=== PATIENT | female | born 1950 | race Caucasian/White ===

== ENCOUNTER → 2023-10-17 14:00 | Outpatient (REF) | payer OTHER, SELFPAY | LOC: DHCBC MAIN 14:00 | PROVIDERS: ATTENDING PHYSICIAN Internal Medicine Cardiovascular Disease; FAMILY PHYSICIAN Family Medicine | DX: R01.1 Cardiac murmur, unspecified (principal); R06.00 Dyspnea, unspecified | CPT/HCPCS: 93306 ==

== ENCOUNTER → 2024-02-01 06:24 | Day surgery (SDC) | payer OTHER, SELFPAY | LOC: GI 06:24 | PROVIDERS: ATTENDING PHYSICIAN Internal Medicine Gastroenterology | DX: Z12.11 Encounter for screening for malignant neoplasm of colon (principal); K64.4 Residual hemorrhoidal skin tags; K64.8 Other hemorrhoids; K57.30 Diverticulosis of large intestine without perforation or abscess without bleeding; K63.5 Polyp of colon; R12 Heartburn | CPT/HCPCS: 45380; 43235; 88305 ==

== ENCOUNTER → 2024-02-05 11:30 | Outpatient (REF) | payer OTHER, SELFPAY | LOC: RAD 11:30 | PROVIDERS: ATTENDING PHYSICIAN Internal Medicine Gastroenterology; FAMILY PHYSICIAN Family Medicine | DX: R10.13 Epigastric pain (principal) | CPT/HCPCS: 76700 ==

== ENCOUNTER → 2024-07-25 11:02 | Outpatient (REF) | payer OTHER, SELFPAY ==
[2024-07-25 19:30] LABS: Rubella Positive
[2024-07-27 15:50] LABS: Quantiferon Mitogen minus NIL 9.93 IU/mL; Quantiferon NIL 0.07 IU/mL; Quantiferon Plus TB1 minus NIL 0.07 IU/mL (<=0.34); Quantiferon Plus TB2 minus NIL 0.05 IU/mL (<=0.34); Quantiferon TB Gold Plus Negative (Negative)
== END ==
LOC: OHS 11:02
PROVIDERS: ATTENDING PHYSICIAN Nurse Practitioner Family
DX: Z23 Encounter for immunization (principal)
CPT/HCPCS: 36415; 86480; 86735; 86762; 86765; 86787

== ENCOUNTER → 2024-09-24 12:25 | Outpatient (REF) | payer OTHER, SELFPAY | LOC: RAD 12:25 | PROVIDERS: ATTENDING PHYSICIAN Internal Medicine Critical Care Medicine; FAMILY PHYSICIAN Family Medicine | DX: J98.4 Other disorders of lung (principal) | CPT/HCPCS: 71046 ==

== ENCOUNTER → 2024-11-11 13:10 | Outpatient (REF) | payer OTHER, SELFPAY | LOC: DHSLP 13:10 | PROVIDERS: ATTENDING PHYSICIAN Internal Medicine Critical Care Medicine; FAMILY PHYSICIAN Family Medicine | DX: G47.33 Obstructive sleep apnea (adult) (pediatric) (principal) | CPT/HCPCS: 95800 ==

== ENCOUNTER 2025-01-14 13:02 | Inpatient (IN) | payer OTHER, SELFPAY ==
[2025-01-14] VITALS (14 sets, daily range): BP systolic 114–160; BP diastolic 59–92; BMI 24.2
--- NOTE | 2025-01-14 11:32 | ED.GENMED ---
History of Present Illness
General
Chief Complaint: Cardiac Symptoms
Time Seen by Provider: 01/14/25 11:28
History of Present Illness
History of Present Illness:
74-year-old female history of CAD, hyperlipidemia, GERD presenting with worsening shortness of breath with exertion over the past few months. Patient states that it is worsened over the past few weeks. Patient states that she followed up with her
postal sorting officer who performed stress test that was concerning for ischemia, patient directed to the ER for admission. Patient denies chest pain. Patient denies shortness of breath currently.
Past History
Past History
ED Past Medical History: GERD and Other (Diverticulosis, anxiety, depression, reflux)
ED Past Surgical History: Gynecological (Bilateral nephrectomy with benign mass, EGD and colonoscopy, cholecystectomy)
Social History
Tobacco: Former smoker (Quit 20 years ago)
Alcohol: Daily (2 drinks a day)
Drug: None
Personal:
Employment: Retired
Family History
Family History: CAD (mother 70s and father 50s, mother w/ CHF)
Phy Exam
Physical Exam
Physical Exam:
General: Alert, no acute distress
Head: NCAT
Eyes: clear conjunctiva
Neck: supple
Cardiac: regular rate and rhythm, no murmur. 2+ radial pulses bilaterally
Lungs: clear to auscultation bilaterally. No wheezes, rales, or rhonchi. Speaking full unlabored sentences. No respiratory distress.
Abdomen: soft, nondistended nontender. No rebound or guarding.
MSK: no lower extremity edema bilaterally. No deformity
Skin: warm, dry
Neuro: Alert and oriented x3. no focal deficits
Course
Orders/Labs/Results
Orders:
Orders
01/14/25 11:21
Electrocardiogram (*1) Urgent
Reason for Study: Vertigo / Dizzy
EKG- Treatment ONCE
01/14/25 11:28
Complete Blood Count/With Diff Urgent
Comprehensive Metabolic Panel Urgent
01/14/25 11:34
Protime/PTT Urgent
Troponin I Urgent
01/14/25 11:40
Aspirin Chewable [Low Strength Aspirin] 324 mg PO NOW STA
01/14/25 12:37
Admit/Transfer Patient As Directed
Co-Sign Provider:
Level of Care: Inpatient admission
Assign to:: IVU
Physician / Group: CBC
Diagnosis: USA
Reason for Hospitalization: USA
Expected length of stay greater than two midnights?: Yes
ELOS- Estimated Length of Stay in days: 3
I certify the patient meets the requirements for IP care: Yes
01/14/25 12:38
Code Status As Directed
Resuscitation Status: Full Code
PRN Pain Medication Management As Directed
May give lesser potent ordered pain med per pt: Yes
preference::
Protocol:: Medication orders for pain may be administered in a
manner that supports deferring to patient preference
when the pt is:
- Requesting an ordered lesser potent pain medication.
Least to most potent pain medications are defined
as: acetaminophen < NSAID < tramadol < opioids
(morphine, oxycodone, hydromorphone).
- Requesting a lesser dose of the same medication IF
ORDERED.
- Requesting a less intrusive route of administration
if both routes are prescribed by the provider (PO <
IV).
Abnormal Lab Results
01/14/25
11:28
RBC 3.81 L 10^6/uL
(4.20-5.40)
Hct 36.8 L %
(37.0-47.0)
MCH 35.2 H pg
(27.0-31.0)
Glucose 109 H mg/dl
(70-99)
Calcium 10.5 H mg/dl
(8.4-10.2)
01/14/25 11:28
01/14/25 11:28
Vital Signs
Initial and Last Documented VS:
Initial Vital Signs
BP
143/63
01/14/25 11:21
Last Documented Vital Signs
Temp Pulse Resp BP Pulse Ox
98.0 F 64 21 143/63 98
01/14/25 11:22 01/14/25 13:45 01/14/25 13:45 01/14/25 13:00 01/14/25 13:45
MDM/Problems Addressed
Differential Diagnosis Includes:
NSTEMI, unstable angina, anemia
MDM/Problems Addressed:
Labs reviewed, unremarkable. Hemoglobin, troponin wnl. EKG shows sinus rhythm at 61bpm with PA 220 QTc 408 anterolateral t wave abnormality as read by me. Discussed with cardiology who plans for cardiac catheterization today, does not recommend
heparin at this time, accepts for admission
*Critical Care Note
Total Time (30-74mins, 75-104mins- exclusive of procedures): Not Applicable
ED Attending Note
-
Portions of this chart may have been created with voice recognition software.� Occasional wrong word or��sound alike� substitutions may have occurred due to the inherent limitations of voice recognition software.
Discharge Plan
Departure
Patient Disposition: Admit
Date of Disposition: 01/14/25
Time of Disposition: 13:06
Presentation/result/management discussed w/ accepting MD/DO: cardiology
Discharge Problem:
ROSENBAUM (dyspnea on exertion)
Interventions
Interventions:
*Risk Screen - Suicide Last Done: 01/14/25 11:22
*General Assessment Last Done: 01/14/25 11:22
*Neglect/Abuse Screening Last Done: 01/14/25 11:22
*ED- Fall Risk Assessment Last Done: 01/14/25 11:22
*ED COVID-19 Vaccine History Last Done: 01/14/25 11:22
ED- Pulmonary Assessment Last Done: 01/14/25 11:22
ED- Cardiac Assessment Last Done: 01/14/25 11:22
[2025-01-14 11:36] LABS: % Basophils 0.4 % (0-2); % Eosinophils 3.4 % (0-6); % Lymphocytes 44.1 % (20.5-51.1); % Monocytes 8.6 % (1.7-9.3); % Neutrophils 43.5 % (42.2-75.2); Absolute Eosinophils 0.2 10^3/uL (0-0.7); Absolute Lymphocytes 2.2 10^3/uL (1.2-3.4); Absolute Monocytes 0.4 10^3/uL (0.1-0.6); Absolute Neutrophils 2.2 10^3/uL (1.4-6.5); Hematocrit 36.8 % (37.0-47.0); Hemoglobin 13.4 g/dL (12.0-16.0); Mean Corp Hgb Conc. 36.4 g/dL (33.0-37.0); Mean Corpuscular Hgb 35.2 pg (27.0-31.0); Mean Corpuscular Volume 96.6 fL (81.0-99.0); Mean Platelet Volume 10.3 fL (7.4-10.4); Nucleated Red Blood Cells % 0 %; Platelet Count 210 10^3/uL (130-400); Red Blood Cell Count 3.81 10^6/uL (4.20-5.40); Red Cell Dist. Width 11.9 % (11.5-14.5)
[2025-01-14] MEDS: LOW STRENGTH ASPIRIN 324 MG PO (11:51)
[2025-01-14 11:54] LABS: ALT (SGPT) 16 U/L (0-35); AST (SGOT) 19 U/L (14-36); Albumin 4.4 g/dl (3.5-5.0); Alkaline Phosphatase 65 U/L (38-126); Blood Urea Nitrogen 16 mg/dl (7-17); Calcium 10.5 mg/dl (8.4-10.2); Carbon Dioxide 29 mmol/L (22-30); Chloride 107 mmol/L (98-107); Estimated Creatinine Clearance 62 ml/min; Glucose 109 mg/dl (70-99); Sodium 142 mmol/L (135-145); Total Bilirubin 0.6 mg/dl (0.2-1.3); eGFR > 60.00
[2025-01-14 11:55] LABS: INR 0.95
[2025-01-14 11:56] LABS: APTT 25.5 Sec (23.4-35.0)
[2025-01-14 12:12] LABS: Troponin I < 0.012 ng/ml
--- NOTE | 2025-01-14 12:31 | W.PN.CD ---
Addendum entered and electronically signed by Marianne Johansen MD 01/14/25 13:35:
I saw and examined the patient.
The PURCHASER's note was reviewed and I agree with the note.
Comment: She had a scheduled ett today that has a high risk result. Last month she could walk a mile, now cannot walk very far at all without stopping. She is also very fatigued. rrr normal s1/s2, no mrg. Lungs CTA. No le edema. Discussed the
stress results and with progressive ROSENBAUM that seems to be her anginal equivalent, there is c/f UA. Recommend urger cath today. She is agreeable, will plan for cath today.
Original Note:
Today's Communication / Plan
-
This is the H&P summary. Please see scanned H&P.
Cardiac catheterization today.
Impression / Plan
-
I/P: 74F with atherosclerosis of the abdominal aorta, former smoker, GERD, dyslipidemia, anxiety, and mild cLVH who presented for Lexiscan nuclear stress test which was abnormal. This was prompted by exertional shortness of breath and exercise
intolerance.
Outpatient explosive ordnance disposal technician: Dr. Galarza
Unstable angina
-Perfusion imaging reveals a large area of moderately decreased perfusion that is predominantly reversible in the mid to apical anterior, mid anteroseptal, apical septal and apex.
-ASA 324mg x 1 now
-Echocardiogram
-Cardiac catheterization today
-Start atorvastatin, if she has an intolerance to this, she will need PCSK9 inhibitor in the outpatient setting
Abdominal aortic atherosclerosis
Statin intolerance, rosuvastatin caused fatigue and pravastatin caused headaches
Former tobacco abuse, continue cessation recommended
Physical Exam
Vital Signs/Labs
Vital Signs
Temp Pulse Resp BP Pulse Ox
98.0 F 68 20 137/61 94
01/14/25 11:22 01/14/25 12:00 01/14/25 12:00 01/14/25 12:00 01/14/25 12:00
01/13/25 01/14/25 01/15/25
06:59 06:59 06:59
Actual Weight 65.9 kg
01/14/25 11:28
01/14/25 11:28
PT 13.0 Sec (11.4-14.6) 01/14/25 11:34
INR 0.95 01/14/25 11:34
APTT 25.5 Sec (23.4-35.0) 01/14/25 11:34
LAB Results
01/14/25
11:34
Troponin I < 0.012
Physical Exam
Constitutional: No acute distress and Comfortable
EENT: Anicteric and Moist mucous membranes
Cardiovascular: Rhythm & rate is regular, Pedal edema is absent and S1S2 is normal
Respiratory: Respiratory effort normal and Lungs clear to auscul.
GI: Soft, Distention absent, Flat, Non tender and Normal bowel sounds
Neuro/Psych: AO x 3
Other: Skin (warm and dry)
Data Reviewed
-
Date of Service: January 14, 2025
Medical Decision Making: External Notes and Reviewed Test Results
Medical Tests (PFT, Pathology etc): Report Reviewed by me
Labs: Labs Reviewed by me
Old Records: Reviewed
--- NOTE | 2025-01-14 18:00 | PTCARENOTE ---
Pt recieved from laborer carpentry dock, R band on right wrist CDI, no c/o chest pain or SOB, EKG obtained, SR on the monitor. NSS infusing @ 99ml/hr x 5hr via R AC. VSS.
[2025-01-14] MEDS: PROTONIX 40 MG PO (18:30)
[2025-01-14] MEDS: LIPITOR 80 MG PO (18:30)
--- NOTE | 2025-01-14 19:39 | PTCARENOTE ---
Received pt @ change of shift. AAOx3, eating dinner. BP elevated (160/74), other VSS. Rt radial site clean, dry, and intact. Radial band has 19 cc. NSS gtt running @ 99 mL/hr for 5 hrs. Discussed continuing to remove air from band and not pushing on
wrist once band is removed. Pt verbalized understanding. Call gale within reach.
--- NOTE | 2025-01-14 20:47 | ITS.CL.PN ---
Negative Stripper - Procedure Note
Procedure
Procedure Note:
CARDIAC CATHETERIZATION REPORT
Date of Procedure: 01/14/2025
Referring: Dr. Anya Johansen MD
Indication: high risk ETT
PROCEDURE(S)
1. left heart catheterization
2. coronary angiography
3. IVUS LAD
4. PCI with SAEID to LAD
ACCESS: 6F right radial artery (closure: radial band)
CATHETERS
1. 6F JR4
2. 6F JL3.5
3. 6F JL3.5 guide catheter (vessel not able to be successful cannulated with an EBU3.5, EBU4.0, or AL1 guide catheter)
MODERATE SEDATION: 60 minutes of moderate sedation was utilized. An independent medical nurse was present to assist with and help manage the patient's level of consciousness and physiologic status.
HEMODYNAMIC DATA
LV 119/5 (EDP 10) mmHg
AO 119/62 (mean 86) mmHg
CORONARY ANGIOGRAPHY
Dominance: Right
LM: Large, normal
LAD: Large vessel giving rise to 3 small diagonal branches. There is a subtotal occlusion in the mid LAD at the bifurcation of D2. The D2 has severe ostial disease. There is evidence of retrograde left to left collaterals from the proximal LAD
septals supplying the mid-distal LAD
LCx: Large vessel giving rise to a moderate caliber LPL1 and large LPL2. There are trivial luminal irregularities only
RCA: Large vessel giving rise to a moderate caliber RPDA, small RPL 1, moderate caliber RPL 2, and small distal RPL branches. There are trivial luminal irregularities only.
IVUS-guided PCI with SAEID to LAD
Heparin was administered to achieve ACT greater than 300. The LAD was wired with some difficulty as a Runthrough wire would not traverse the lesion and a hydrophilic Whisper wire was required. Initial lesion preparation was performed with a 2.0 mm
semicompliant balloon with full expansion and denominational of normal LIZA-3 distal flow. IC nitro was given and IVUS was performed demonstrating a 3.0 mm reference vessel diameter and noncalcific plaque. A 3.0 x 22 mm Russell frontier drug-eluting stent
was delivered and deployed at nominal pressure. There was noted to no longer be flow in the small jailed D2, which had severe ostial disease. The patient was having no chest pain and there were no ST changes on the monitor. Thus, decision was made
not to rescue the small side branch. Post dilation was performed with a 3.0 NC balloon taken to high-pressure sparing the distal edge. Final IVUS demonstrated excellent stent apposition and expansion, appropriate sizing, and no proximal or distal
edge dissections. Final angiographic result was outstanding. The wire and guide were removed and a TR band placed. The patient was loaded with 180 mg of ticagrelor and admitted for observation.
RADIATION: dose 454 mGy; DAP 21.493 Gy*cm2; fluoroscopy time 30 min
CONCLUSIONS
1. Coronary artery disease as described with subtotal occlusion of the mid LAD
2. Normal LV filling pressure and no aortic stenosis
3. Successful IVUS guided PCI to the mid LAD with SAEID x 1 (3.0 x 22 mm Russell [place] SAEID postdilated to high-pressure with a 3.0 NC balloon)
RECOMMENDATIONS
1. DAPT with aspirin and ticagrelor for 1 year
2. Aggressive secondary prevention of coronary artery disease
3. TTE in AM
4. Cardiac rehab
Copy to: Dr. Jorge L Galarza MD (project management professional); Dr. Diana Sousa DO (PCP)
Signed: Richard Robledo MD, PhD
[2025-01-14] MEDS: XANAX 0.75 MG PO (22:01)
[2025-01-14] MEDS: DESYREL 50 MG PO (23:00)
[2025-01-14] MEDS: CYMBALTA DELAYED RELEASE 60 MG PO (23:00)
--- NOTE | 2025-01-14 23:53 | W.PN.UPDATE ---
Update Note
Progress Note Update
[id number]
Right forearm hematoma post transradial cath, pulse ok, fingers numb per patient.�
Plan�
Reapplied pressure band; inflate to 10cc for 1hour, then slowly release 2cc at time.
Icing area�
Monitor for compartment syndrome�
[2025-01-15] VITALS (15 sets, daily range): BP systolic 87–140; BP diastolic 43–77
[2025-01-15] MEDS: DILAUDID 0.25 MG IV ×2 (00:23→18:19)
--- NOTE | 2025-01-15 00:39 | PTCARENOTE ---
Addendum entered by Cassandra Ford RN 01/15/25 00:45:
About 30 minutes post reapplying band, RN noticed swelling around the band increasing. BRISEIDA French, came to look-- advised to keep a close eye on pulse, fingers, and any indication of compartment syndrome.
Original Note:
RN removed Rband @ 2315. Pt called RN back into room @ 2320-- pt had developed a hematoma. RN notified BRISEIDA French and he came to assess. RN held manual pressure for 30 minutes. Hematoma resolved. RN directed to reapply Rband with 10 cc of
air, let wait an hour, and begin to slowly remove air 2cc Q15min. Pt c/o pain. Dilaudid ordered and given-- see MAR. Pt educated on calling nurse if fingers become numb, swelling gets worse, or pain gets worse. Pt verbalized understanding. Call
gale within reach.
[2025-01-15] MEDS: DILAUDID 0.5 MG IV ×4 (01:34→20:31)
--- NOTE | 2025-01-15 05:15 | PTCARENOTE ---
R band removed @ 0445. Hematoma still present. RN held pressure on area for 10 minutes. Hematoma resolved-- area soft to touch. Very ecchymotic.
[2025-01-15 05:33] LABS: Hemoglobin 12.6 g/dL (12.0-16.0); Mean Corp Hgb Conc. 37.1 g/dL (33.0-37.0); Mean Corpuscular Hgb 35.6 pg (27.0-31.0); Mean Platelet Volume 10.4 fL (7.4-10.4); Platelet Count 196 10^3/uL (130-400); Red Blood Cell Count 3.54 10^6/uL (4.20-5.40); Red Cell Dist. Width 11.6 % (11.5-14.5); White Blood Cell Count 5.1 10^3/uL (4.8-10.8)
[2025-01-15 05:58] LABS: Blood Urea Nitrogen 13 mg/dl (7-17); Carbon Dioxide 25 mmol/L (22-30); Chloride 108 mmol/L (98-107); Estimated Creatinine Clearance 62 ml/min; Glucose 100 mg/dl (70-99); HDL Cholesterol 40 mg/dl; LDL Cholesterol, Calculated 93 mg/dl; Sodium 140 mmol/L (135-145); Total Cholesterol 156 mg/dl (50-199); Triglyceride 119 mg/dl (10-149); Very Low Density Lipoprotein 23 mg/dl (0-30); eGFR > 60.00
--- NOTE | 2025-01-15 08:34 | W.PN.CD ---
Today's Communication / Plan
-
DAPT and statin
No BB due to bradycardia
Echo today
US to rule out pseudoneurysm of R wrist
Impression / Plan
-
I/P: 74F with atherosclerosis of the abdominal aorta, former smoker, GERD, dyslipidemia, anxiety, and mild cLVH with recent exertional shortness of breath and exercise intolerance who presented for Lexiscan nuclear stress test with high risk
findings. Taken for [facility] yesterday with SAEID to LAD. Course complicated by R wrist hematoma.
Outpatient biodiesel plant superintendent: Dr. Galarza
Unstable angina s/p SAEID to LAD
-Perfusion imaging reveals a large area of moderately decreased perfusion that is predominantly reversible in the mid to apical anterior, mid anteroseptal, apical septal and apex.
-[facility] 01/14/25: normal LM, subtotal occlusion mid LAD, LCx with LIs, RCA with LIs; 3.0 x 22 mm Russell frontier drug-eluting stent to mid-LAD; small jailed D2
-Echocardiogram today
-Continue ASA, Ticag and Atorvastatin
-No BB due to bradycardia
R wrist hematoma
-Continue compression and symptomatic care
-US to rule out pseudoaneurysm
Hypertension
-Losartan started
Abdominal aortic atherosclerosis
Statin intolerance, rosuvastatin caused fatigue and pravastatin caused headaches
Former tobacco abuse, continue cessation recommended
Subjective: Wrist pain but otherwise feels ok. Was up and went to bathroom.
Physical Exam
Vital Signs/Labs
Vital Signs
Temp Pulse Resp BP Pulse Ox
98.1 F 59 16 130/66 97
01/15/25 07:32 01/15/25 08:15 01/15/25 07:32 01/15/25 07:31 01/15/25 07:32
01/14/25 01/15/25 01/16/25
06:59 06:59 06:59
Actual Weight 145 lb 4.554 oz
01/15/25 05:05
01/15/25 05:05
PT 13.0 Sec (11.4-14.6) 01/14/25 11:34
INR 0.95 01/14/25 11:34
APTT 25.5 Sec (23.4-35.0) 01/14/25 11:34
Triglycerides 119 mg/dl (10-149) 01/15/25 05:05
LDL Cholesterol, Calc 93 mg/dl 01/15/25 05:05
VLDL Cholesterol, Calc 23 mg/dl (0-30) 01/15/25 05:05
HDL Cholesterol 40 mg/dl 01/15/25 05:05
LAB Results
01/14/25
11:34
Troponin I < 0.012
Physical Exam
Constitutional: No acute distress and Comfortable
Cardiovascular: Rhythm & rate is regular, Pedal edema is absent and Murmur/rub/gallop absent
Respiratory: Respiratory effort normal and Lungs clear to auscul.
Neuro/Psych: AO x 3
Other: Cath Site (R wrist swelling and tenderness, TR band in place)
Data Reviewed
-
Date of Service: January 15, 2025
Medical Decision Making: Reviewed Test Results, Independent Historian Assessment, Test Interpretation and Review of Case with other Provider
EKG: Tracing Personally Visualized and interpreted
Echo: Tracing Personally Visualized and interpreted
Labs: Labs Reviewed by me
--- NOTE | 2025-01-15 08:38 | CARDSERVDEF ---
Echocardiogram with Definity completed after protocol screening completed. Allergies verified.
Patent IV site: _Right arm median basillic antecubital site clear____
IV site flushed with 0.9% NaCl pre and post administration.
Diluted bolus method utilized to enhance visualization of ventricular pineda.
Total volume given: __3__ mL
Patient tolerated all procedures well without complications.
[2025-01-15] MEDS: COZAAR 25 MG PO (09:03)
[2025-01-15] MEDS: BRILINTA 90 MG PO ×2 (09:03→19:24)
[2025-01-15] MEDS: LOW STRENGTH ASPIRIN 81 MG PO (09:04)
[2025-01-15] MEDS: FLUSH (NSS) 1 FLUSH IV (09:05)
[2025-01-15 09:19] LABS: Glycohemoglobin (HgbA1c) 5.2 % (4.0-5.6)
--- NOTE | 2025-01-15 09:51 | PTCARENOTE ---
During rounds at change of shift with outgoing nurse, right wrist dressing was dry and intact, strong radial pulse and area soft but ecchymotic. Patient notified nurse at 0740 that she felt her wrist area was getting firm again. Manual pressure held
for 10mins and then Dr. Dale in to see the patient. She placed radial band back on the patient's right wrist, to leave on for one hour and then begin removing air q 30'. Patient having 8/10 pain right wrist, given dilaudid 0.5mg IV for pain,
reports pain is now 2/10. Will send for u/s when band removed.
--- NOTE | 2025-01-15 10:39 | CM ---
Patient is independent of ADLS, lives with her in a 2 STH, 2STE, 0 DME. Plan is for the patient to return home. CM to follow
--- NOTE | 2025-01-15 10:41 | CM ---
Pricing on Brilinta 90mg BID is $111 through the patient's [facility], [place] [id number]. Brilinta is not available at the patient's [facility]. Prescription will need to be placed at a different [facility] if patient goes home before Monday. Patient
prefers [facility] and it is available.
--- NOTE | 2025-01-15 10:53 | PTCARENOTE ---
Air removed from right radial band q30', band now off. Right wrist is ecchymotic with some edema and slight firmness. Patient send for ultrasound.
--- NOTE | 2025-01-15 12:35 | CON.VAS ---
Addendum entered and electronically signed by FOREIGN Lynch 01/15/25 13:52:
Consultation Date/Time: 01/15/25 1235
Addendum entered and electronically signed by FOREIGN Lynch 01/15/25 13:26:
CORRECTION: Past Surgical History: Other (Bilateral oophorectomy with benign mass, EGD and colonoscopy, cholecystectomy)
Original Note:
Consultation
Consultation Request
Performing Provider: Lemuel
Reason for Consultation: Radial pseudoanuerysm
Medical History
-
Chief Complaint: Right radial swellinh/ecchymosis
History of Present Illness:
74 yo female with PMH CAD, former smoker, GERD, dyslipidemia, anxiety admitted through the ER yesterday from her cardiologists office for high risk findings on nuc stress test. Pt was taken for [facility] yesterday with SAEID to LAD. This was complicated by
a right radial hematoma.
RUE US: IMPRESSION: Small right radial artery pseudoaneurysm status post percutaneous access for coronary catheterization. Pseudoaneurysm measures 0.9 x 0.6 x 0.8 cm.
Vascular consult for PSA. Pt seen at bedside with Dr Hdez. She does indeed have a palpable small pulsatile mass. Some surrounding ecchymosis and hematoma but soft and not tense or significant. Hand is pink and warm. Neurologically intact
motor/sensory function in the hand. Duplex reviewed with patient.
Past Medical History
Past Medical History: GERD, HTN and Other (Diverticulosis, anxiety, depression, reflux)
Past Surgical History: Other (Bilateral nephrectomy with benign mass, EGD and colonoscopy, cholecystectomy)
Social History
Tobacco: Former Smoker
Drug: None
Personal:
Living: With Family
Family History
Family History: Reviewed & Not Pertinent
Allergies / Home Medications
Allergy/AdvReac Type Severity Reaction Status Date / Time
No Known Allergies Allergy Verified 01/14/25 11:26
�Medication �Instructions �Recorded �Confirmed �Type
alprazolam 0.25 mg tablet 0.75 mg PO HS 05/12/14 04/08/25 History
duloxetine 60 mg capsule,delayed 60 mg PO HS 02/17/14 01/14/25 History
release
ibuprofen 200 mg tablet (Advil) 400 mg PO Q8HPRN PRN headache 01/14/25 01/14/25 History
pantoprazole 40 mg tablet,delayed 40 mg PO QPM 01/14/25 01/14/25 History
release (Protonix)
trazodone 50 mg tablet 50 mg PO HS 01/14/25 01/14/25 History
atorvastatin 80 mg tablet 80 mg PO QPM #90 tabs 01/15/25 Rx
losartan 25 mg tablet 25 mg PO DAILY #90 tabs 01/15/25 Rx
ticagrelor 90 mg tablet (Brilinta) 90 mg PO BID #180 tabs 01/15/25 Rx
Review of Systems
-
History Source: Patient
All other systems: Negative unless noted
Constitutional: Reports No Symptoms
EENT: Reports No Symptoms
Respiratory: Reports No Symptoms
Cardiac: Reports No Symptoms
: Reports No Symptoms
Musculoskeletal: Reports Edema
Skin: Reports Other (ecchymotic right wrist and forearm )
Neurological: Reports No Symptoms
Endocrine: Reports No Symptoms
Physical Exam
Vital Signs
Temp Pulse Resp BP Pulse Ox
98.5 F 60 16 122/50 94
01/15/25 12:16 01/15/25 12:15 01/15/25 12:16 01/15/25 12:12 01/15/25 12:16
Lab Results
01/15/25 05:05
01/15/25 05:05
Troponin I < 0.012 ng/ml 01/14/25 11:34
Physical Exam
General: No Apparent Distress
HEENT: Normocephalic and Atraumatic
Respiratory: Non Labored Respirations
Cardiac: Negative JVD
GI: Soft and Non Tender
Musculoskeletal: No Clubbing and Edema
Skin: Warm and Other (+2 radial pulse, swelling/ecchymosis to radial site, hand warm and pink)
Neuro: Awake, Alert and Oriented
Psych: Calm
Assessment / Plan
-
Plan/recommend at this point given continued pain repair of pseudoaneurysm. On ultrasound there is full flow into the aneurysm (no partial thrombus or thrombosis). It is small less than 1 cm, and therefore could consider continued observation, but
given that she is uncomfortable and tender would favor repair. I discussed this all with her. I cristiana diagrams to facilitate her understanding. Discussed the possibility of primary repair, need for more extensive repair with end-to-end
anastomosis, or possibility of ligation of the radial artery. (Less likely though). She understands all wishes to proceed with primary repair of the right radial artery pseudoaneurysm. We will add onto the OR for repair today.
Data Reviewed
-
Ultrasound: Discussed with Patient
Labs: Labs Reviewed by me
--- NOTE | 2025-01-15 12:57 | W.PN.UPDATE ---
Update Note
Progress Note Update
Seen and evaluated with SARIAH Varela. Full consultation to follow. 74-year-old female with right radial artery pseudoaneurysm status post coronary catheterization. She has pain at the site. Uncomfortable. No symptoms of pain or numbness in the
hand itself. Radial band applied without improvement. I examined her now. She does indeed have a palpable small pulsatile mass. Some surrounding ecchymosis and hematoma but soft and not tense or significant. Hand is pink and warm.
Neurologically intact motor/sensory function in the hand. Duplex reviewed. Plan/recommend at this point given continued pain repair of pseudoaneurysm. On ultrasound there is full flow into the aneurysm (no partial thrombus or thrombosis). It is
small less than 1 cm, and therefore could consider continued observation, but given that she is uncomfortable and tender would favor repair. I discussed this all with her. I cristiana diagrams to facilitate her understanding. Discussed the possibility
of primary repair, need for more extensive repair with end-to-end anastomosis, or possibility of ligation of the radial artery. (Less likely though). She understands all wishes to proceed with primary repair of the right radial artery
pseudoaneurysm. We will add onto the OR for repair today.
--- NOTE | 2025-01-15 13:33 | PTCARENOTE ---
After ultrasound, patient seen by Dr. Dale who re-applied the radial band to the right wrist with 12ml of air. Patient is aware to remain NPO for possible procedure for pseudoaneurysm. Vascular team in to see the patient and explained plan of care.
Radial band removed by Dr. Hdez. Right wrist area remains ecchymotic with edema and is tender, strong radial pulse is present. Patient requesting pain medication, tt to Faviola Soto SOFTWARE DEVELOPMENT INTERN.
[2025-01-15] MEDS: PERIDEX 0.12% ORAL RINSE 15 ML PO (15:24)
[2025-01-15] MEDS: BACTROBAN NASAL 1 GRAM NASAL (15:33)
--- NOTE | 2025-01-15 15:37 | PTCARENOTE ---
Pt received from IVU, transported via bed to clam bed laborer recovery area, AAO x3, c/o right wrist discomfort- rates /, site has a dressing dry and intact, swelling and eccymosis noted, monitor showing NSR, vss as documented, denies SOB, lung sounds
clear, O2 sat 95% on room air, last ate at 1000 today, abd soft with +BS, voided in room before leaving, #20G IV in RAC WNL and flushes easily, new #20G inserted in left wrist and NSS @ KVO started, Dr Miguel trinidad texted to inform of pt's arrival,
CHG wipes done
--- NOTE | 2025-01-15 16:01 | W.SUR.PREOP ---
Pre-Operative Surgical Note
-
I have examined this patient prior to the performance of the scheduled procedure.
The patient's condition is unchanged from the time of the current History and
Physical and the patient is able to undergo the scheduled procedure.
--- NOTE | 2025-01-15 17:50 | OR.RPT ---
Operative Report
Operative Report
PROCEDURE DATE: 01/15/2025
Preoperative diagnosis: Right radial artery pseudoaneurysm status post right radial access for coronary catheterization.
Postoperative diagnosis: Same
Procedure: Urgent repair of right radial artery pseudoaneurysm.
Surgeon: Lemuel
Utility Systems Repairer Operator: SARIAH Cooney, required for aspects of procedure including assistance with traction/countertraction, following of suture line, assistance with closure.
Complications: None
Anesthesia: General
Indications for procedure:
Right radial artery pseudoaneurysm status post coronary catheterization (radial Access). Continued pain discomfort in the wrist. Risk/benefit/alternatives of repair were discussed. She understood all wished to proceed.
Description of procedure:
Patient was identified brought to the operating room placed on the table in supine position. After the adequate administration of anesthesia she was prepped and draped in the standard surgical fashion. A standard preoperative timeout was
undertaken and everybody was in agreement the plan. A longitudinal incision was made in the distal radial aspect of the wrist, the center of which encompassed the puncture site. This was carried through skin subcutaneous tissue. There was blood
staining in the subcutaneous tissues. Proximally I tried to dissect the proximal radial artery once through the fascial sheath. Again this was slightly challenging secondary to the blood stained tissues. However I was able to dissect down to the
artery. I did note some bleeding from a pseudoaneurysm at this point. Manual pressure was applied and then circumferential dissection of the radial artery was undertaken proximally with a vascular passed around it. However, I did not pull up the
double looped vessel loop yet. I maintained finger pressure on the bleeding pseudoaneurysmal site. I continued to dissect on the anterior surface of the radial artery now going distally. The actual pseudoaneurysm itself was dissected off and I
now dissected distal to the pseudoaneurysmal hole. Again maintaining finger pressure. I circumferentially dissected the radial artery distally here and passed a vessel loop around it. I now gave 4008 of intravenous heparin. I placed Yasargil
clips on the radial artery proximally distally. I now skeletonized the radial artery such that any residual pseudoaneurysmal tissue or other tissue overlying was completely dissected off. The pseudoaneurysm capsule itself was resected and sent for
specimen. The small puncture site hole was now carefully identified and two 7-0 Prolene sutures were carefully placed in order to close the rent transversely. These were then tied down and as such the pseudoaneurysmal hole was closed transversely.
I then released the Yasargil clips (had temporarily released them to backbleed prior to tying down my sutures). Excellent pulsatile flow was now noted in the radial artery proximal and distal to the repair. Even with compression of the distal
radial artery and ulnar artery, there was good flow suggesting that flow was going through the repaired segment and not retrograde from the ulnar artery. At this point I was very satisfied. Doppler confirmed excellent signal as well. At this
point we irrigated. Achieved and confirmed full hemostasis (protamine was given to reverse the heparin). We then closed in layers using 3-0 Vicryl running deep dermal layer followed by 4-0 Monocryl subcuticular stitch. Dermabond was applied. The
patient tolerated the procedure well. All sponge, needle, instrument counts were correct at the end of the case. The patient was transported to the recovery room in stable condition.
--- NOTE | 2025-01-15 17:55 | W.PN.UPDATE ---
Update Note
Progress Note Update
Interventional cardiology update
Overnight nursing and CT [employer]GETABLE PARER reached out to me around 9:30 PM while on-call that after patient's radial band came off she had evidence of a small hematoma around the site and swelling with some numbness in her fingertips. She underwent PCI earlier
that day. Manual pressure was held for about 20 minutes and we discussed placing the radial band back on for a prolonged wean after leaving it on for 1 to 2 hours. No evidence for compartment syndrome was noted. Hemodynamics were stable with no
other cardiac complaints. We discussed elevating the arm and having a low threshold to be discussed with me if there were any worsening symptoms overnight in which case we would consider a stat ultrasound and vascular surgery input if need be.
I evaluated the patient at bedside for Menjivar this morning around 7:30 AM. Nursing was at bedside along with patient who told me that overnight she had done well and this morning she had recurrent swelling and tenderness at the site. 2+ bounding
radial pulse was noted without audible bruit however there was evidence of subcutaneous hematoma around the access site. We discussed checking a stat vascular ultrasound which was ordered by myself and I placed the radial band back on to apply
pressure at the site and discussed with nursing at bedside to leave it on for another hour and performing a slow wean. Hemodynamics otherwise remained stable with no other cardiac complaints. I discussed with [facility] rounding physician, Dr. Galarza
to make her aware of the plan as well as discussed all of the above with Dr. Silver Robledo (IC who performed PCI yesterday), who agreed with the plan discussed.
Once the ultrasound was performed formed and completed, I reviewed the images and findings vascular surgeon, Dr. Paul Hdez. There was evidence of a small pseudoaneurysm. I stop by the room again and evaluated patient at bedside and given persistent
tenderness, we proceeded to get a formal vascular consult in case intervention was needed. I placed the radial band back on for additional manual pressure at the site until further assessment was completed with the set plan. All of this was
discussed with patient at bedside as well as nursing.
UE US: Small right radial artery pseudoaneurysm status post percutaneous access for coronary catheterization. Pseudoaneurysm measures 0.9 x 0.6 x 0.8 cm. Urgent study findings communicated to ordering provider Dr. Cristela Dale now directly.
Dr. Hdez informed me after evaluated the patient that they would move forward with surgical intervention and take care of the pseudoaneurysm in the setting of persistent tenderness. I again updated both Dr. Galarza and Meena.
Patient underwent successful right radial pseudoaneurysm repair by Dr. Hdez with no acute complications around 5 PM.
Cristela Dale MD, [facility], [facility]
Total time spent throughout the day: 51 minutes
--- NOTE | 2025-01-15 18:48 | PTCARENOTE ---
Received patient from PACU, drowsy but oriented and resting comfortably. SR on telemetry, monitoring VS. Right wrist area is ecchymotic, incision is open to air with surgical glue in place, scant amount of bloody drainage noted. Fingers cool but
rapid capillary refill and positive sensation and movement, pulse ox 95%. Call gale in reach.
[2025-01-15] MEDS: LIPITOR 80 MG PO (19:24)
[2025-01-15] MEDS: PROTONIX 40 MG PO (19:24)
--- NOTE | 2025-01-15 19:31 | PTCARENOTE ---
Received pt @ change of shift. Pt resting, but arouses to sound. Ox3. VSS. BPs on sequence, pulse ox on right hand. Right forearm ecchymotic, YAO. Fingers cool, palpable radial pulse. Pain 11/18. Discussed plan of care for evening. Pt verbalized
understanding.
[2025-01-15] MEDS: XANAX 0.75 MG PO (21:38)
[2025-01-15] MEDS: DESYREL 50 MG PO (21:38)
[2025-01-15] MEDS: CYMBALTA DELAYED RELEASE 60 MG PO (21:38)
[2025-01-16] VITALS (10 sets, daily range): BP systolic 91–139; BP diastolic 48–84; PULSE 71–78; O2SAT 93–94
[2025-01-16] MEDS: DILAUDID 0.5 MG IV ×4 (03:07→17:27)
[2025-01-16 03:56] LABS: Hematocrit 32.9 % (37.0-47.0); Mean Corp Hgb Conc. 36.5 g/dL (33.0-37.0); Mean Corpuscular Hgb 35.4 pg (27.0-31.0); Mean Corpuscular Volume 97.1 fL (81.0-99.0); Mean Platelet Volume 10.4 fL (7.4-10.4); Platelet Count 177 10^3/uL (130-400); Red Blood Cell Count 3.39 10^6/uL (4.20-5.40); Red Cell Dist. Width 12.1 % (11.5-14.5); White Blood Cell Count 4.4 10^3/uL (4.8-10.8)
[2025-01-16 04:07] LABS: Blood Urea Nitrogen 13 mg/dl (7-17); Calcium 9.7 mg/dl (8.4-10.2); Carbon Dioxide 26 mmol/L (22-30); Chloride 110 mmol/L (98-107); Estimated Creatinine Clearance 62 ml/min; Glucose 109 mg/dl (70-99); Potassium 3.9 mmol/L (3.5-5.1); Sodium 142 mmol/L (135-145); eGFR > 60.00
--- NOTE | 2025-01-16 07:27 | W.PN.VS ---
Today's Communication / Plan
-
Seen and assessed with Dr Hdez
Assessment/Plan
-
POD 1 Urgent repair of right radial artery pseudoaneurysm.
Plan:
-PT/OT
-OK from vascular standpoint for DC today
-F/u added to chart
Subjective Data
-
Date of Service: January 16, 2025
Pt seen at bedside this am with Dr Hdez. Pt complains of shoulder stiffness this morning. No events overnight.
Objective Data
-
Vital Signs
Temp Pulse Resp BP Pulse Ox
98.5 F 63 14 120/50 94
01/15/25 22:00 01/16/25 02:15 01/15/25 22:00 01/15/25 22:00 01/16/25 02:15
Intake and Output
01/15/25 01/16/25 01/17/25
06:59 06:59 06:59
Other:
Number of approximated MODERATE 2
amounts of urine
Lab Results
01/16/25 03:22
01/16/25 03:22
Calcium 9.7 mg/dl (8.4-10.2) 01/16/25 03:22
Total Bilirubin 0.6 mg/dl (0.2-1.3) 01/14/25 11:28
AST 19 U/L (14-36) 01/14/25 11:28
ALT 16 U/L (0-35) 01/14/25 11:28
Alkaline Phosphatase 65 U/L (38-126) 01/14/25 11:28
Total Protein 7.0 g/dl (6.3-8.2) 01/14/25 11:28
Albumin 4.4 g/dl (3.5-5.0) 01/14/25 11:28
Physical Exam
-
AAOx3
No tachypnea on RA
No tachycardia
Abd soft
Wrist site c/d/i, moderate ecchymosis, hand warm/pink
Palpable pulse
[2025-01-16] MEDS: COZAAR 25 MG PO (07:36)
[2025-01-16] MEDS: LOW STRENGTH ASPIRIN 81 MG PO (07:36)
[2025-01-16] MEDS: BRILINTA 90 MG PO ×2 (07:36→20:44)
--- NOTE | 2025-01-16 08:28 | W.PN.CD ---
Today's Communication / Plan
-
cont ASA/Brilinta
tele
PT/OT eval
Impression / Plan
-
I/P: 74F with atherosclerosis of the abdominal aorta, former smoker, GERD, dyslipidemia, anxiety, and mild cLVH with recent exertional shortness of breath and exercise intolerance who presented for Lexiscan nuclear stress test with high risk
findings. Taken for [facility] yesterday with SAEID to LAD. Course complicated by R wrist hematoma.
Outpatient photographer still: Dr. Galarza
ACS/Unstable angina: s/p SAEID to LAD 01/14
-C 01/14/25: normal LM, subtotal occlusion mid LAD, LCx with LIs, RCA with LIs; 3.0 x 22 mm [place] frontier drug-eluting stent to mid-LAD; small jailed D2
-Echocardiogram: EF 55-60%, apical septal HK
-Continue ASA, Brilinta, and Atorvastatin
-No BB due to bradycardia
R radial pseudoaneurysm s/p repair 01/15 evening
-per vascular surgery
-PT/OT
Hypertension
-Losartan started this admission
Abdominal aortic atherosclerosis
Statin intolerance, rosuvastatin caused fatigue and pravastatin caused headaches: now on atorvastatin
Former tobacco abuse, continue cessation recommended
Physical Exam
Vital Signs/Labs
Vital Signs
Temp Pulse Resp BP Pulse Ox
99.8 F 63 20 120/50 95
01/16/25 07:34 01/16/25 02:15 01/16/25 07:34 01/15/25 22:00 01/16/25 07:34
01/15/25 01/16/25 01/17/25
06:59 06:59 06:59
Actual Weight 65.9 kg
01/16/25 03:22
01/16/25 03:22
PT 13.0 Sec (11.4-14.6) 01/14/25 11:34
INR 0.95 01/14/25 11:34
APTT 25.5 Sec (23.4-35.0) 01/14/25 11:34
Triglycerides 119 mg/dl (10-149) 01/15/25 05:05
LDL Cholesterol, Calc 93 mg/dl 01/15/25 05:05
VLDL Cholesterol, Calc 23 mg/dl (0-30) 01/15/25 05:05
HDL Cholesterol 40 mg/dl 01/15/25 05:05
LAB Results
01/14/25
11:34
Troponin I < 0.012
Physical Exam
Constitutional: No acute distress and Comfortable
EENT: Moist mucous membranes
Cardiovascular: Rhythm & rate is regular, Pedal edema is absent, JVD pressure is normal and Systolic murmur absent
Respiratory: Respiratory effort normal
Neuro/Psych: AO x 3
Data Reviewed
-
Date of Service: January 16, 2025
EKG: Other (Tele: SR 60s)
Echo: Report Reviewed by me
Labs: Labs Reviewed by me
--- NOTE | 2025-01-16 09:29 | PTCARENOTE ---
Rec'd pt at handoff. R wrist surgical site is YAO and ecchymotic. Pt reports 8/10 pain at surgical site and PRN IV Dilaudid administered as ordered. Pt reports some relief. R wrist elevated and ice applied. Plan of care verbalized w/ pt and
verbalizes understanding. Currently in bed; call gale is w/in reach.
--- NOTE | 2025-01-16 11:49 | CM ---
Chart reviewed. Patient is independent of ADLS, lives with her in a 2 STH, 2 DIPAK, 0 DME. Plan is for the patient to return home. CM to follow
[2025-01-16] MEDS: LIPITOR 80 MG PO (17:22)
[2025-01-16] MEDS: PROTONIX 40 MG PO (17:22)
[2025-01-16] MEDS: ROXICODONE 5 MG PO (22:26)
[2025-01-16] MEDS: DESYREL 50 MG PO (22:26)
[2025-01-16] MEDS: CYMBALTA DELAYED RELEASE 60 MG PO (22:26)
[2025-01-16] MEDS: XANAX 0.75 MG PO (22:26)
--- NOTE | 2025-01-16 23:56 | PTCARENOTE ---
assumed care of patient at the change of shift. AAOx3. patient states continued pain at her Right wrist site. at that time patient requested an ice pack; refused medication. pain continued- PRN oxycodone given, see dec. R wrist site YAO; surgical
glue. ecchymotic, soft. tender to touch per patient. + pulses. SR on tele 70s. bp stable. ambulating without issues. denies cp/sob. educated patient to inform RN with any changes. ACS medication list provided- reviewed with patient. call gale within
reach.
temperature 99.9. patient called RN into the bathroom. patient states having a rash. generalized rash/red noted on abdomen and b/l flanks. patient states rash is new and is 'normal' for her when she starts to become sick. repeat temperature- 99.3.
mild chills per patient. refusing tylenol. denies itching. educated patient to inform RN with any worsening symptoms. patient verbalized understanding.
[2025-01-17] VITALS (7 sets, daily range): BP systolic 109–162; BP diastolic 48–116; PULSE 91
--- NOTE | 2025-01-17 08:37 | W.PN.CD ---
Today's Communication / Plan
-
discharge planning on ASA 81mg daily, brilinta 90mg bid, losartan 25mg daily, atorvastatin 80mg daily
Impression / Plan
-
I/P: 74F with atherosclerosis of the abdominal aorta, former smoker, GERD, dyslipidemia, anxiety, and mild cLVH with recent exertional shortness of breath and exercise intolerance who presented for Lexiscan nuclear stress test with high risk
findings. Taken for [facility] yesterday with SAEID to LAD. Course complicated by R wrist hematoma.
Outpatient mail censor: Dr. Galarza
ACS/Unstable angina: s/p SAEID to LAD 01/14
-C 01/14/25: normal LM, subtotal occlusion mid LAD, LCx with LIs, RCA with LIs; 3.0 x 22 mm [place] frontier drug-eluting stent to mid-LAD; small jailed D2
-Echocardiogram: EF 55-60%, apical septal HK
-Continue ASA, Brilinta, and Atorvastatin
-No BB due to bradycardia
-stable, no angina
R radial pseudoaneurysm s/p repair 01/15 evening
-per vascular surgery
Hypertension
-Losartan started this admission
Abdominal aortic atherosclerosis
Statin intolerance, rosuvastatin caused fatigue and pravastatin caused headaches: now on atorvastatin
Former tobacco abuse, continue cessation recommended
Physical Exam
Vital Signs/Labs
Vital Signs
Temp Pulse Resp BP Pulse Ox
99 F 67 20 109/48 93
01/17/25 08:07 01/17/25 04:38 01/17/25 08:07 01/17/25 04:38 01/17/25 08:07
01/16/25 03:22
01/16/25 03:22
PT 13.0 Sec (11.4-14.6) 01/14/25 11:34
INR 0.95 01/14/25 11:34
APTT 25.5 Sec (23.4-35.0) 01/14/25 11:34
Triglycerides 119 mg/dl (10-149) 01/15/25 05:05
LDL Cholesterol, Calc 93 mg/dl 01/15/25 05:05
VLDL Cholesterol, Calc 23 mg/dl (0-30) 01/15/25 05:05
HDL Cholesterol 40 mg/dl 01/15/25 05:05
LAB Results
01/14/25
11:34
Troponin I < 0.012
Physical Exam
Constitutional: No acute distress and Comfortable
EENT: Moist mucous membranes
Cardiovascular: Rhythm & rate is regular, Pedal edema is absent, JVD pressure is normal and Systolic murmur absent
Respiratory: Respiratory effort normal and Lungs clear to auscul.
Neuro/Psych: AO x 3
Data Reviewed
-
Date of Service: January 17, 2025
EKG: Other (Tele: SR 60s, no arrhythmia)
[2025-01-17] MEDS: COZAAR 25 MG PO (09:19)
[2025-01-17] MEDS: LOW STRENGTH ASPIRIN 81 MG PO (09:19)
[2025-01-17] MEDS: BRILINTA 90 MG PO (09:19)
--- NOTE | 2025-01-17 10:03 | CM ---
Pharmacy called and confirmed, patients Brilinta is in stock and waiting for picking supervisor. PT evaluation recommending VN. Referral sent to [facility]. Plan is for the patient to return [facility] with [facility].
[2025-01-17] MEDS: ULTRAM 50 MG PO (10:19)
[2025-01-17] MEDS: BENADRYL 25 MG PO (10:54)
--- NOTE | 2025-01-17 11:34 | PTCARENOTE ---
pts right radial is cdi and ecchymotic. pt c/o of pain tramadol given as ordered. pt also c/o rash throughout the body, Benadryl given as ordered.
d/c instructions read to pt and pt verbalized understanding. iv and tele removed. pt left w/ belongings from room, educational material, and scripts. pt left via wheelchair w/ staff member.
--- NOTE | 2025-01-17 11:45 | W.DS.TRANS ---
DC Summary - Director Of Development
-
Discharge Instructions:
Discharge Diagnosis/Procedures Angioplasty and stent to Left Anterior
Descending artery
Right wrist pseudoaneurysm, s/p surgical repair
Diet Low Cholesterol
Driving Restrictions No driving for 24 hours
Other Services Cardiac Rehab
Instructions:
Stand-Alone Forms: DC Instructions- Cath/EP Lab
Changes to Home Medications: Yes
Discharge Medications:
DC Medications w/original date entered in Hang[employer]
alprazolam 0.25 mg tablet 0.75 mg PO HS 02/17/14
duloxetine 60 mg capsule,delayed release 60 mg PO HS 02/17/14
ibuprofen 200 mg tablet (Advil) 400 mg PO Q8HPRN PRN headache 01/14/25
pantoprazole 40 mg tablet,delayed release (Protonix) 40 mg PO QPM 01/14/25
trazodone 50 mg tablet 50 mg PO HS 01/14/25
aspirin 81 mg chewable tablet 81 mg PO DAILY #0 tabs 01/15/25
atorvastatin 80 mg tablet 80 mg PO QPM #90 tabs 01/15/25
losartan 25 mg tablet 25 mg PO DAILY #90 tabs 01/15/25
ticagrelor 90 mg tablet (Brilinta) 90 mg PO BID #180 tabs 01/15/25
tramadol 50 mg tablet 50 mg PO BID PRN moderate pain #10 tabs 01/17/25
Home Medication Changes
NEW: aspirin, atorvastatin, losartan, ticagrelor, tramadol
Pending Results: No
== END 2025-01-17 12:05 | disposition home health service (06) | DRG 322 ==
LOC: IVU 13:02
PROVIDERS: Nurse Practitioner; Nurse Practitioner Acute Care; Nurse Practitioner Gerontology; Student in an Organized Health Care Education/Training Program; ADMITTING PHYSICIAN Internal Medicine Cardiovascular Disease; CONSULT PHYSICIAN Surgery Vascular Surgery; EMERGENCY PHYSICIAN Emergency Medicine; FAMILY PHYSICIAN Family Medicine
PROC: B240ZZ3 Ultrasonography of Single Coronary Artery, Intravascular (ICD-10-PCS; 2025-01-14)
PROC: 4A023N7 Measurement of Cardiac Sampling and Pressure, Left Heart, Percutaneous Approach (ICD-10-PCS; 2025-01-14)
PROC: B2111ZZ Fluoroscopy of Multiple Coronary Arteries using Low Osmolar Contrast (ICD-10-PCS; 2025-01-14)
PROC: 027034Z Dilation of Coronary Artery, One Artery with Drug-eluting Intraluminal Device, Percutaneous Approach (ICD-10-PCS; 2025-01-14)
PROC: 03BB0ZZ Excision of Right Radial Artery, Open Approach (ICD-10-PCS; 2025-01-15)
DX: I25.110 Atherosclerotic heart disease of native coronary artery with unstable angina pectoris (principal); I97.630 Postprocedural hematoma of a circulatory system organ or structure following a cardiac catheterization; E78.5 Hyperlipidemia, unspecified; K21.9 Gastro-esophageal reflux disease without esophagitis; F32.A Depression, unspecified; F41.9 Anxiety disorder, unspecified; I11.9 Hypertensive heart disease without heart failure; I70.0 Atherosclerosis of aorta; I72.1 Aneurysm of artery of upper extremity; Y84.0 Cardiac catheterization as the cause of abnormal reaction of the patient, or of later complication, without mention of misadventure at the time of the procedure; Y71.0 Diagnostic and monitoring cardiovascular devices associated with adverse incidents; Y92.239 Unspecified place in hospital as the place of occurrence of the external cause; Z87.891 Personal history of nicotine dependence; Z82.49 Family history of ischemic heart disease and other diseases of the circulatory system; Z90.5 Acquired absence of kidney; Z90.49 Acquired absence of other specified parts of digestive tract
CPT/HCPCS: 88304; 37799; 78452; 80048; 80053; 80061; 83036; 84484; 85025; 85027; 85347; 85610; 85730; 92978; 93005; 93017; 93306; 93458; 93926; 97162; 97166; 97530; 97535; 99152; 99153; 99285; A9500; C1725; C1753; C1887; C1894; C9600; J2785; Q9957; Q9967

== ENCOUNTER 2025-01-18 18:11 | Emergency (ER) | payer OTHER, SELFPAY ==
[2025-01-18 18:18] VITALS: BP 102/68
[2025-01-18 18:40] VITALS: BP 135/58
[2025-01-18 18:41] VITALS: BMI 23.6
--- NOTE | 2025-01-18 19:05 | ED.GENMED ---
History of Present Illness
General
Chief Complaint: Breathing Problem
Source: patient
Exam Limitations: none
Time Seen by Provider: 01/18/25 18:53
History of Present Illness
History of Present Illness:
74-year-old female presents for evaluation for shortness of breath. She was discharged from this hospital yesterday after a 4-day hospital course. She was sent in electively after a failed stress test. Ended up needing an LAD stent. She
developed a pseudoaneurysm of the right radial artery postoperatively and needed vascular intervention. She is on dual antiplatelet therapy. She denies significant chest pain or leg swelling. No calf pain. She denies fever or cough. In general
she just feels fatigued. She slept all day today. She denies headache or dizziness or vision change.
Past History
Past History
ED Past Medical History: GERD and Other (Diverticulosis, anxiety, depression, reflux)
ED Past Surgical History: Gynecological (Bilateral nephrectomy with benign mass, EGD and colonoscopy, cholecystectomy)
Social History
Tobacco: Former smoker (Quit 20 years ago)
Alcohol: Daily (2 drinks a day)
Drug: None
Personal:
Employment: Retired
Family History
Family History: CAD (mother 70s and father 50s, mother w/ CHF)
Phy Exam
Physical Exam
Physical Exam:
General: Well-appearing female no acute respiratory distress
HEENT: Normocephalic atraumatic neck is supple
Heart: Regular rate and rhythm
Lungs: Clear no wheeze
Abdomen is soft nontender nondistended
Extremities: No cyanosis or edema
Skin: Healing surgical incision over the radial aspect volarly of the right wrist. There is surrounding ecchymosis
Scores
Heart Failure Risk
Heart Failure Risk Score: Not Applicable
Course
Orders/Labs/Results
Orders:
Orders
01/18/25 18:19
Electrocardiogram (*1) Urgent
Reason for Study: Shortness of Breath
EKG- Treatment ONCE
01/18/25 19:04
CT Chest PE Study Urgent
Comment:
Reason For Exam: sob
0.9% Sodium Chloride 500 ml [Nss] 500 ml IV BOLUS
01/18/25 19:06
Complete Blood Count/With Diff Urgent
Comprehensive Metabolic Panel Urgent
NT-proBNP Urgent
Troponin I Urgent
01/18/25 22:01
Troponin I Urgent
01/18/25 22:36
Clopidogrel Bisulfate [Plavix] 600 mg PO NOW STA
Abnormal Lab Results
01/18/25 01/18/25
19:06 22:01
RBC 3.70 L 10^6/uL
(4.20-5.40)
Hct 35.4 L %
(37.0-47.0)
MCH 35.1 H pg
(27.0-31.0)
MPV 10.5 H fL
(7.4-10.4)
Absolute Lymphs (auto) 0.8 L 10^3/uL
(1.2-3.4)
Neutrophils % 77.3 H %
(42.2-75.2)
Lymphocytes % 14.1 L %
(20.5-51.1)
Glucose 114 H mg/dl
(70-99)
Troponin I 0.102 H* ng/ml 0.099 H* ng/ml
01/18/25 19:06
01/18/25 19:06
Vital Signs
Initial and Last Documented VS:
Initial Vital Signs
Temp Pulse Resp BP Pulse Ox
98 F 91 16 102/68 96
01/18/25 18:18 01/18/25 18:18 01/18/25 18:18 01/18/25 18:18 01/18/25 18:18
Last Documented Vital Signs
Temp Pulse Resp BP Pulse Ox
98 F 76 18 116/55 98
01/18/25 18:18 01/18/25 22:45 01/18/25 22:45 01/18/25 21:00 01/18/25 22:00
MDM/Problems Addressed
Differential Diagnosis Includes:
Shortness of breath following 4-day hospital stay recent stent in the LAD and pseudoaneurysm repair of the right radial artery. Consider deconditioning from hospital stay versus PE versus pneumonia versus anemia
Check labs. Will order CT of chest. Fluid bolus ordered
*Critical Care Note
Total Time (30-74mins, 75-104mins- exclusive of procedures): Not Applicable
Update Note
Update Note:
Initial troponin 0.[address] of chest negative for pulmonary embolism or acute finding otherwise. Discussed with cardiology. They recommended stopping the current antiplatelet agent and starting Plavix. She was loaded with
600 mg of Plavix here tonight. But is stable for discharge with continuation of Plavix 75 mg daily at home. She will follow-up with the cardiology team. I reexamined the patient's right wrist which appears to have normal postoperative findings
with resolving ecchymosis. She has palpable pulses to the radial and ulnar aspect of the right wrist.
ED Attending Note
-
Portions of this chart may have been created with voice recognition software.� Occasional wrong word or��sound alike� substitutions may have occurred due to the inherent limitations of voice recognition software.
Discharge Plan
Departure
Patient Disposition: Home (Routine Discharge)
Date of Disposition: 01/18/25
Time of Disposition: 23:12
Patient with high blood pressure during this ER visit?: No
Discharge Problem:
Acute dyspnea
Instructions: Shortness of Breath (Dyspnea) (DC)
Prescriptions:
New
clopidogrel [Plavix] 75 mg tablet
75 mg PO DAILY Qty: 30 0RF
No Action
alprazolam 0.25 MG tablet
0.75 mg PO HS
duloxetine 60 MG capsule,delayed release(DR/EC)
60 mg PO HS
trazodone 50 mg Tablet
50 mg PO HS
pantoprazole [Protonix] 40 mg Tablet,Delayed Release (Dr/Ec)
40 mg PO QPM
ibuprofen [Advil] 200 mg Tablet
400 mg PO Q8HPRN PRN (Reason: headache)
Brilinta 90 mg Tablet
90 mg PO BID Qty: 180 3RF
losartan 25 mg Tablet
25 mg PO DAILY Qty: 90 3RF
atorvastatin 80 mg Tablet
80 mg PO QPM Qty: 90 3RF
aspirin 81 mg Tablet,Chewable
81 mg PO DAILY Qty: 0 0RF
tramadol 50 mg tablet
50 mg PO BID PRN (Reason: moderate pain) Qty: 10 0RF
Referrals:
UNKNOWN - PT DOES,NOT KNOW [Unknown Provider] -
Activity Restrictions/Additional Instructions:
Stop Brilinta(ticagrelor) and start Plavix 75mg daily. Return for worsening symptoms otherwise follow up with cardiology.
Interventions
Interventions:
*Risk Screen - Suicide Last Done: 01/18/25 18:43
*General Assessment Last Done: 01/18/25 18:43
*Neglect/Abuse Screening Last Done: 01/18/25 18:43
*ED- Fall Risk Assessment Last Done: 01/18/25 18:43
*ED COVID-19 Vaccine History Last Done: 01/18/25 18:43
ED- Cardiac Assessment Last Done: 01/18/25 18:43
ED- Pulmonary Assessment Last Done: 01/18/25 18:43
Discharge Date and Time
Print Language: INDIAN
[2025-01-18] MEDS: NSS 500 IV (19:10)
[2025-01-18 19:17] LABS: % Basophils 0.4 % (0-2); % Eosinophils 3.4 % (0-6); % Immature Granulocytes 0.2 % (0-0.5); % Lymphocytes 14.1 % (20.5-51.1); % Monocytes 4.6 % (1.7-9.3); % Neutrophils 77.3 % (42.2-75.2); Absolute Eosinophils 0.2 10^3/uL (0-0.7); Absolute Lymphocytes 0.8 10^3/uL (1.2-3.4); Absolute Monocytes 0.3 10^3/uL (0.1-0.6); Absolute Neutrophils 4.4 10^3/uL (1.4-6.5); Hematocrit 35.4 % (37.0-47.0); Mean Corp Hgb Conc. 36.7 g/dL (33.0-37.0); Mean Corpuscular Hgb 35.1 pg (27.0-31.0); Mean Corpuscular Volume 95.7 fL (81.0-99.0); Mean Platelet Volume 10.5 fL (7.4-10.4); Nucleated Red Blood Cells % 0 %; Platelet Count 208 10^3/uL (130-400); Red Cell Dist. Width 11.8 % (11.5-14.5); White Blood Cell Count 5.7 10^3/uL (4.8-10.8)
[2025-01-18 19:30] LABS: ALT (SGPT) 21 U/L (0-35); AST (SGOT) 29 U/L (14-36); Albumin 3.8 g/dl (3.5-5.0); Alkaline Phosphatase 64 U/L (38-126); Blood Urea Nitrogen 11 mg/dl (7-17); Calcium 9.9 mg/dl (8.4-10.2); Carbon Dioxide 26 mmol/L (22-30); Chloride 107 mmol/L (98-107); Estimated Creatinine Clearance 74 ml/min; Glucose 114 mg/dl (70-99); Potassium 3.9 mmol/L (3.5-5.1); Sodium 139 mmol/L (135-145); Total Bilirubin 1.2 mg/dl (0.2-1.3); Total Protein 6.3 g/dl (6.3-8.2); eGFR > 60.00
[2025-01-18 19:49] LABS: NT-proBNP 291 pg/ml; Troponin I 0.102 ng/ml
[2025-01-18 20:44] VITALS: BP 121/67
[2025-01-18 21:00] VITALS: BP 116/55
[2025-01-18 22:34] LABS: Troponin I 0.099 ng/ml
[2025-01-18] MEDS: PLAVIX 600 MG PO (22:53)
== END 2025-01-18 23:23 | disposition home or self-care (01) ==
LOC: EMR 18:11
PROVIDERS: Physician Assistant; EMERGENCY PHYSICIAN Emergency Medicine; FAMILY PHYSICIAN Family Medicine
DX: R06.00 Dyspnea, unspecified (principal); K21.9 Gastro-esophageal reflux disease without esophagitis; F41.8 Other specified anxiety disorders; Z79.02 Long term (current) use of antithrombotics/antiplatelets; Z82.49 Family history of ischemic heart disease and other diseases of the circulatory system; Z87.891 Personal history of nicotine dependence; Z90.49 Acquired absence of other specified parts of digestive tract; Z90.5 Acquired absence of kidney; Z95.5 Presence of coronary angioplasty implant and graft
CPT/HCPCS: 99284; 96360; 71275; 80053; 83880; 84484; 85025; 93005; Q9967

== ENCOUNTER 2025-02-03 18:02 | Observation (INO) | payer OTHER, SELFPAY ==
[2025-02-03] VITALS (13 sets, daily range): BP systolic 106–145; BP diastolic 53–74; BMI 23.1; BMI 22.6
[2025-02-03 11:48] LABS: % Basophils 0.8 % (0-2); % Eosinophils 3.1 % (0-6); % Immature Granulocytes 0.2 % (0-0.5); % Lymphocytes 25.3 % (20.5-51.1); % Monocytes 5.3 % (1.7-9.3); % Neutrophils 65.3 % (42.2-75.2); Absolute Eosinophils 0.2 10^3/uL (0-0.7); Absolute Lymphocytes 1.2 10^3/uL (1.2-3.4); Absolute Monocytes 0.3 10^3/uL (0.1-0.6); Absolute Neutrophils 3.2 10^3/uL (1.4-6.5); Hematocrit 37.7 % (37.0-47.0); Hemoglobin 13.7 g/dL (12.0-16.0); Mean Corp Hgb Conc. 36.3 g/dL (33.0-37.0); Mean Corpuscular Hgb 34.9 pg (27.0-31.0); Mean Corpuscular Volume 96.2 fL (81.0-99.0); Mean Platelet Volume 10.8 fL (7.4-10.4); Nucleated Red Blood Cells % 0 %; Platelet Count 307 10^3/uL (130-400); Red Blood Cell Count 3.92 10^6/uL (4.20-5.40); Red Cell Dist. Width 11.4 % (11.5-14.5); White Blood Cell Count 4.9 10^3/uL (4.8-10.8)
[2025-02-03 12:01] LABS: APTT 26.6 Sec (23.4-35.0); INR 1.03; PT 13.8 Sec (11.4-14.6)
[2025-02-03 12:04] LABS: ALT (SGPT) 20 U/L (0-35); AST (SGOT) 20 U/L (14-36); Albumin 4.5 g/dl (3.5-5.0); Alkaline Phosphatase 71 U/L (38-126); Blood Urea Nitrogen 15 mg/dl (7-17); Calcium 10.5 mg/dl (8.4-10.2); Carbon Dioxide 27 mmol/L (22-30); Chloride 105 mmol/L (98-107); Glucose 125 mg/dl (70-99); Potassium 4.3 mmol/L (3.5-5.1); Sodium 141 mmol/L (135-145); Total Bilirubin 0.7 mg/dl (0.2-1.3); Total Protein 7.1 g/dl (6.3-8.2); eGFR > 60.00
[2025-02-03 12:10] LABS: COVID-19 Antigen Negative (Negative)
[2025-02-03 12:13] LABS: NT-proBNP 190 pg/ml
[2025-02-03 13:59] LABS: Troponin I 0.019 ng/ml
--- NOTE | 2025-02-03 14:30 | ED.GENMED ---
History of Present Illness
General
Chief Complaint: Breathing Problem
Time Seen by Provider: 02/03/25 11:40
History of Present Illness
History of Present Illness:
74-year-old female presents the emergency department for evaluation of ongoing intermittent dyspnea and chest pain. Patient recently was admitted to this hospital for unstable angina at which time she underwent cardiac catheterization on January 14,
had 1 stent placed to the LAD at that time. Procedure was complicated by right radial artery pseudoaneurysm formation requiring vascular surgery intervention. She returned to the emergency department 3 days after discharge for ongoing shortness of
breath, at that time had a CT PE study that was negative. Her antiplatelet therapy was switched from Brilinta to Plavix for reasons that are not clear at this point. She has been compliant with all of her other medications. States that since that
time she has had continued intermittent shortness of breath and sharp anterior chest pains that are different from her prior angina. No fevers or chills, no night sweats. No black or bloody stool
Past History
Past History
ED Past Medical History: GERD and Other (Diverticulosis, anxiety, depression, reflux)
ED Past Surgical History: Gynecological (Bilateral nephrectomy with benign mass, EGD and colonoscopy, cholecystectomy)
Social History
Tobacco: Former smoker (Quit 20 years ago)
Alcohol: Daily (2 drinks a day)
Drug: None
Personal:
Employment: Retired
Family History
Family History: CAD (mother 70s and father 50s, mother w/ CHF)
Review of Systems
Review of Systems
Allergies reviewed?: Yes
All Other Systems: ROS reviewed and negative except as documented in HPI and ROS
Phy Exam
Physical Exam
Physical Exam:
GEN: Well appearing, NAD, WDWN
HEENT: Oral mucosa moist, no scleral icterus
Cardiac: Regular rate and rhythm, no murmurs
Lung: No respiratory distress, no tachypnea
MSK: No gross deformity or injuries
Skin: Good color, no pallor or jaundice, no rashes
Neuro: AO x3, moves all extremities freely
Psych: Calm, cooperative
Scores
Heart Failure Risk
Heart Failure Risk Score: Not Applicable
Course
Orders/Labs/Results
Orders:
Orders
02/03/25 10:54
Electrocardiogram (*1) Urgent
Reason for Study: Shortness of Breath
02/03/25 10:55
EKG- Treatment ONCE
02/03/25 11:14
COVID-19 Antigen Urgent
Source: Nasal Swab
Complete Blood Count/With Diff Urgent
Comprehensive Metabolic Panel Urgent
NT-proBNP Urgent
PTT Urgent
Prothrombin Time Urgent
Troponin I Urgent
Comment: ADD
Influenza A+B Rapid Molecular Urgent
MACRY Source: Nasal Swab
Specimen Description:
02/03/25 11:51
CR Chest - 2 Views Urgent
Comment:
Reason For Exam: dyspnea
02/03/25 12:54
Add On- LAB Urgent
Tests Added?: troponin
02/03/25 Dinner
Cholesterol Lowering
At Your Request: Full Participation
Cholesterol Lowering: Sodium, 2 Gram
02/03/25 16:45
EKG [Electrocardiogram (*1)] Urgent
Reason for Study: Chest Pain
Comment: 2nd trop
EKG- Treatment ONCE
02/03/25 17:46
PSYCHIATRY CONSULT Routine
Consulting Provider: Marianne Gunn
Was physician already notified: Yes
Reason for consult: Anxiety post heart attack/pseudoaneurysm repair underlying anxiety
02/03/25 17:47
Admit/Transfer Patient As Directed
Co-Sign Provider:
Level of Care: Observation services
Assign to:: Telemetry
Physician / Group: cristo cruz
Diagnosis: Intermittent dyspnea likely secondary to anxiety, acute on chronic anxiety
Reason for Telemetry: Arrhythmia
Date to Stop Telemetry: 02/06/25
Time to Stop Telemetry: 11:00
Reason for Hospitalization: Intermittent dyspnea likely secondary to anxiety, acute on chronic anxiety
Code Status As Directed
Resuscitation Status: Full Code
CARDIOLOGY CONSULT Routine
Consulting Provider: Sourav Santiago
Was physician already notified: Yes
Reason for consult: Acute dyspnea status post LAD stent 01/14/2025
02/03/25 17:50
PRN Pain Medication Management As Directed
May give lesser potent ordered pain med per pt: Yes
preference::
Protocol:: Medication orders for pain may be administered in a
manner that supports deferring to patient preference
when the pt is:
- Requesting an ordered lesser potent pain medication.
Least to most potent pain medications are defined
as: acetaminophen < NSAID < tramadol < opioids
(morphine, oxycodone, hydromorphone).
- Requesting a lesser dose of the same medication IF
ORDERED.
- Requesting a less intrusive route of administration
if both routes are prescribed by the provider (PO <
IV).
02/03/25 17:58
Troponin I Q6H
02/04/25 00:00
Troponin I Q6H
02/04/25 06:00
EKG [Electrocardiogram (*1)] IN AM
Reason for Study: CAD
Stress Echo Cardiography (*10) IN AM
Reason for Study: ROSENBAUM, recent stenting
NPO
Allow oral meds: Yes
Allow clear liquids: No
02/06/25 11:00
DC Protocol for Telemetry ONCE
Abnormal Lab Results
02/03/25
11:14
RBC 3.92 L 10^6/uL
(4.20-5.40)
MCH 34.9 H pg
(27.0-31.0)
RDW 11.4 L %
(11.5-14.5)
MPV 10.8 H fL
(7.4-10.4)
Glucose 125 H mg/dl
(70-99)
Calcium 10.5 H mg/dl
(8.4-10.2)
02/03/25 11:14
02/03/25 11:14
Vital Signs
Initial and Last Documented VS:
Initial Vital Signs
Temp Pulse Resp BP Pulse Ox
97.8 F 92 18 113/63 100
02/03/25 11:03 02/03/25 11:03 02/03/25 11:03 02/03/25 11:03 02/03/25 11:03
Last Documented Vital Signs
Temp Pulse Resp BP Pulse Ox
97.8 F 69 19 126/59 96
02/03/25 11:03 02/03/25 18:00 02/03/25 18:00 02/03/25 18:00 02/03/25 18:00
MDM/Problems Addressed
MDM/Problems Addressed:
Unclear cause of the patient's symptoms at this time. Will request cardiology consultation due to multiple repeat ER visits after recent cardiac intervention.
After cardiac consultation the decision has been made to admit the patient for further cardiac workup and potential workup of noncardiac causes of chest pain and shortness of breath
*Critical Care Note
Total Time (30-74mins, 75-104mins- exclusive of procedures): Not Applicable
ED Attending Note
-
Portions of this chart may have been created with voice recognition software.� Occasional wrong word or��sound alike� substitutions may have occurred due to the inherent limitations of voice recognition software.
Discharge Plan
Departure
Patient Disposition: Admit
Date of Disposition: 02/03/25
Time of Disposition: 16:09
Presentation/result/management discussed w/ accepting MD/DO: Hospitalist
Discharge Problem:
Dyspnea, Atypical chest pain
Interventions
Interventions:
*Risk Screen - Suicide Last Done: 02/03/25 11:06
*General Assessment Last Done: 02/03/25 11:06
*Neglect/Abuse Screening Last Done: 02/03/25 11:06
*ED- Fall Risk Assessment Last Done: 02/03/25 12:25
*ED COVID-19 Vaccine History Last Done: 02/03/25 11:06
ED- Cardiac Assessment Last Done: 02/03/25 12:22
ED- Pulmonary Assessment Last Done: 02/03/25 12:22
--- NOTE | 2025-02-03 14:49 | CON.CAR ---
Addendum entered and electronically signed by Sourav Santiago MD 02/03/25 16:56:
I saw and examined the patient.
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
Comment: Her ROSENBAUM and dizziness (at times together and at times separate) never resolved with LAD stenting. Now with prolonged symptoms and so far negative troponin. Perhaps her original symptoms were unrelated to the discovered/treated LAD disease.
Would anticipate + troponin on serial trop. checks, EKG changes if she were having ACS given the long duration of CP but if trop negative I favor a stress echo to add extra evidence against ischemic etiology. If all negative suggest workup for
non-cardiac causes of her dyspnea and dizziness.
Original Note:
Consultation
Consultation Request
Date/Time Consultation Requested: 02/03/25 1440
Date/Time Consultation Performed: 02/03/25 1449
Requesting Provider: Abhijeet GOINS
Performing Provider: Monica CARRASQUILLO for Dr. Santiago
Reason for Consultation: SOB, light-headedness
Medical History
-
Chief Complaint: chest discomfort
History of Present Illness:
74 y/o female with GERD, dyslipidemia, anxiety, former smoker, HTN, restrictive lung disease (Dr. Lopez), and CAD with recent LAD PCI (01/14/25) done following abnormal stress test for ROSENBAUM and fatigue. This procedure was complicated by right radial
pseudoaneurysm s/p repair. She went to the ER 01/18/25 with dyspnea and Brilinta was adjusted to Plavix. She presents today with SOB and dizziness. This was present prior to cath and never improved post-cath. However, this AM, she felt that it was
worse. She has also been having CH's since this all started. She is in no distress at the time of my assessment. Troponin is normal. Sister is at bedside.
Past Medical History
Past Medical History: CAD, GERD and Hypercholesterolemia
Social History
Tobacco: Former Smoker
Family History
Family History: CAD
Allergies / Home Medications
Allergy/AdvReac Type Severity Reaction Status Date / Time
No Known Allergies Allergy Verified 01/14/25 11:26
�Medication �Instructions �Recorded �Confirmed �Type
alprazolam 0.25 mg tablet 0.75 mg PO HS 02/17/14 01/14/25 History
duloxetine 60 mg capsule,delayed 60 mg PO HS 02/17/14 01/14/25 History
release
ibuprofen 200 mg tablet (Advil) 400 mg PO Q8HPRN PRN headache 01/14/25 01/14/25 History
pantoprazole 40 mg tablet,delayed 40 mg PO QPM 01/14/25 01/14/25 History
release (Protonix)
trazodone 50 mg tablet 50 mg PO HS 01/14/25 01/14/25 History
aspirin 81 mg chewable tablet 81 mg PO DAILY #0 tabs 01/15/25 Rx
atorvastatin 80 mg tablet 80 mg PO QPM #90 tabs 01/15/25 Rx
losartan 25 mg tablet 25 mg PO DAILY #90 tabs 01/15/25 Rx
ticagrelor 90 mg tablet (Brilinta) 90 mg PO BID #180 tabs 01/15/25 Rx
tramadol 50 mg tablet 50 mg PO BID PRN moderate pain #10 01/17/25 Rx
tabs
clopidogrel 75 mg tablet (Plavix) 75 mg PO DAILY #30 tabs 01/18/25 Rx
Review of Systems
-
History Source: Patient
All other systems: Negative unless noted
Constitutional: Fatigue
Respiratory: Trouble Breathing
Cardiac: Chest Pain
Physical Exam
Vital Signs
Temp Pulse Resp BP Pulse Ox
97.8 F 66 18 111/62 97
02/03/25 11:03 02/03/25 13:44 02/03/25 13:44 02/03/25 13:44 02/03/25 13:44
Lab Results
02/03/25 11:14
02/03/25 11:14
Troponin I 0.019 ng/ml 02/03/25 11:14
Gye-Z-Hnjjrtrdagc Pept 190 pg/ml 02/03/25 11:14
Physical Exam
General: Well Developed, Well Nourished and No Apparent Distress
HEENT: Normocephalic and Anicteric
Respiratory: Clear and Non Labored Respirations
Cardiac: Regular Rhythm
Musculoskeletal: No Edema
Skin: Warm and Dry
Neuro: AO x 3
Psych: Calm
Impression / Plan
-
SOB, dizziness:
-tele SR, trop normal
-etiology unclear. She does have restrictive lung disease- could be worsening of this?
CAD:
-Cardiac cath 01/14/25: Dominance: Right LM: Large, normal LAD: Large vessel giving rise to 3 small diagonal branches. There is a subtotal occlusion in the mid LAD at the bifurcation of D2. The D2 has severe ostial disease. There is evidence of
retrograde left to left collaterals from the proximal LAD septals supplying the mid-distal LAD LCx: Large vessel giving rise to a moderate caliber LPL1 and large LPL2. There are trivial luminal irregularities only RCA: Large vessel giving rise to a
moderate caliber RPDA, small RPL 1, moderate caliber RPL 2, and small distal. Successful IVUS guided PCI to the mid LAD with SAEID x 1.
-continue ASA, Plavix, statin
-trop unremarkable
GERD:
-PPI
Former tobacco:
-quit 25 years ago
HTN:
-stable, on ARB
Will discuss case with Dr. Santiago
Data Reviewed
-
EKG: Tracing Personally Visualized and interpreted (NSR 86 BPM, anterior and lateral ST/T abnormalities)
Radiology: Report Reviewed by me (CXR: No acute pulmonary process identified.)
Medical Tests (Nuc Med, Echo etc): Report Reviewed by me (echo 01/15/25: Left ventricle is small in size with mild concentric left ventricular hypertrophy. Left ventricular ejection fraction is 55-60%. Mild hypokinesis of the apical septum. No
significant valvular disease. )
Labs: Labs Reviewed by me
--- NOTE | 2025-02-03 16:50 | HPS.HSE ---
Family Physician
-
Family Physician: Diana Sousa
Chief Complaint
-
Difficulty taking a deep breath, chronic postnasal drip
History of Present Illness
74-year-old female complaining of ongoing intermittent dyspnea. She states the symptoms typically last about 30 seconds however today lasted on and off for 1 hour. She had recent admission 01/14/2025 she had 1 stent placed to her LAD at that time
her procedure was complicated by a right radial artery pseudoaneurysm requiring vascular surgery intervention on 01/15/25. She was discharged on 01/17/2025. She returned 3 days after her intervention for shortness of breath had negative CT PE study
her antiplatelet therapy was switched from Brilinta to Plavix for unclear reasons she is compliant with all of her medication. She reports her intermittent shortness of breath she describes that she has a sensation she cannot take a deep breath.
She also complains of chronic postnasal drip for which she uses saline nasal spray no allergy meds. She reports her oxygen is usually 96 to 98% on room air she is currently 93 to 94% on room air however she was not aware she has a diagnosis of COPD
although she follows with pulmonary for her pulmonary nodule of which she is unsure which side and chronic bronchitis. She denies chest pain but does report some indigestion she is on Protonix 40 mg daily. She also reports feeling anxious and does
take Xanax for that. She denies fever, chills, night sweats, palpitations, abdominal pain, nausea, vomiting, diarrhea, urinary symptoms.
She has past medical history of prior daily alcohol use 2 drinks a day wine stopped December 2024 to lose weight. GERD, COPD, former smoker quit 20 years ago, chronic bronchitis, pulmonary nodule, CAD status post LAD PCI 01/14/2025, right radial
pseudoaneurysm status post repair anxiety, depression, diverticulosis.
Medical History
Past Medical History
Past Medical History: Reports Other
Additional Past Medical History:
prior daily alcohol use 2 drinks a day wine stopped December 2024 to lose weight
GERD
COPD
former smoker quit 25 years ago-former 1 pack a day x 15-20 years
chronic bronchitis
pulmonary nodule-patient unsure what side
CAD status post LAD PCI 01/14/2025
right radial pseudoaneurysm status post repair anxiety 01/15/2025
depression
Anxiety
diverticulosis.
Past Surgical History: Reports Other
Additional Past Surgical History:
CAD status post LAD PCI 01/14/2025
right radial pseudoaneurysm status post repair anxiety 01/15/2025
Social History
Tobacco: Former Smoker (1 pack a day x 15-20 years quit 25 years ago)
Alcohol: Former (Drink 12 ounces of wine daily stopped end of December 2023)
Drug: None
Personal: Single
Living: Alone
Employment: Retired
Family History
Family History: Not pertinent
Allergies / Home Medications
Allergies reflects when Allergies were last updated in [facility].
Home Medications with original date entered in [facility]
Allergy/Medication List:
Allergies
Allergy/AdvReac Type Severity Reaction Status Date / Time
No Known Allergies Allergy Verified 01/14/25 11:26
Home Medications
alprazolam 0.25 mg tablet 0.75 mg PO HS 02/17/14
duloxetine 60 mg capsule,delayed release 60 mg PO HS 02/17/14
pantoprazole 40 mg tablet,delayed release (Protonix) 40 mg PO QPM 01/14/25
trazodone 50 mg tablet 50 mg PO HS 01/14/25
aspirin 81 mg chewable tablet 81 mg PO DAILY #0 tabs 01/15/25
atorvastatin 80 mg tablet 80 mg PO QPM #90 tabs 01/15/25
losartan 25 mg tablet 25 mg PO DAILY #90 tabs 01/15/25
clopidogrel 75 mg tablet (Plavix) 75 mg PO DAILY #30 tabs 01/18/25
polyethylene glycol 3350 17 gram oral powder packet (Miralax) 17 g PO DAILYPRN PRN mild pain 02/03/25
tramadol 50 mg tablet 50 mg PO BIDPRN PRN moderate pain 02/03/25
Review of Systems
-
History Source: Patient and Other (Friend in room)
A 12 point ROS was completed and negative except as noted: Yes
Constitutional: Denies Fever, Fatigue or Chills
EENT: Denies Sore Throat or Runny Nose
Respiratory: Reports Trouble Breathing (Reports has difficulty taking a deep breath); Denies Cough
Cardiac: Denies Chest Pain, Diaphoresis or Palpitations
Abdomen/GI: Denies Abdominal Pain, Nausea, Vomiting, Diarrhea or Constipated
: Denies Dysuria, Frequency, Flank Pain, Incontinence, Difficulty Voiding or Urgency
Musculoskeletal: Denies Joint Pain or Edema
Skin: Denies Itching or Rash
Neurological: Reports Dizzy (When she feels short of breath as she gets anxious); Denies Headache or Weakness
Endocrine: Reports No Symptoms
Hematologic/Lymphatic: Reports No Symptoms
Psych: Reports Anxiety
Physical Exam
Vital Signs
Vital Signs
Temp Pulse Resp BP Pulse Ox
97.8 F 69 16 132/68 98
02/03/25 11:03 02/03/25 16:45 02/03/25 16:45 02/03/25 16:00 02/03/25 16:45
Physical Exam
General: Comfortable and Conversant; No Pain, Fever or Chills
HEENT: NormoCephalic, Anicteric, Moist mucous membranes, [place] Conjunctivae and No Ptosis
Respiratory: Clear and Other (Poor inspiratory effort encourage patient to take deep breaths); No Wheezes, Rales or Rhonchi
Cardiac: S1/S2 and Regular Rhythm; No Murmur, Rub, Gallop or Peripheral Edema
Breast: Deferred by me
GI: Soft, Non Tender, Non Distended, Normal Bowel Sounds and No Hepatosplenomegaly
Rectal: Deferred by Provider
Genito-urinary: Deferred by me
Musculoskeletal: No Clubbing, No Cyanosis and No Edema
Skin: Warm, Dry and Other (Resolving ecchymosis to left ankle unsure injury); No Rash
Neuro: AO x 3 (Very anxious and is somewhat forgetful of recent events), No Motor Deficits, Nonfocal/grossly intact, Cranial Nerves Intact and No Sensory Deficits; No Slurred Speech, Facial Droop, Tremors or Sedated
Psych: Anxious
Laboratory Results
-
02/03/25 11:14
02/03/25 11:14
Laboratory Results
PT 13.8 Sec (11.4-14.6) 02/03/25 11:14
INR 1.03 02/03/25 11:14
APTT 26.6 Sec (23.4-35.0) 02/03/25 11:14
Total Bilirubin 0.7 mg/dl (0.2-1.3) 02/03/25 11:14
AST 20 U/L (14-36) 02/03/25 11:14
ALT 20 U/L (0-35) 02/03/25 11:14
Alkaline Phosphatase 71 U/L (38-126) 02/03/25 11:14
Troponin I 0.019 ng/ml 02/03/25 11:14
Data Reviewed
-
Lab Data: Labs Reviewed by me
Impression/Plan
-
Impression/plan:
Observation telemetry
#Acute on chronic dyspnea unclear etiology possible pulmonary component Acute on chronic anxiety disorder
97% RA,COVID/influenza negative
proBNP 190
-Consult psychiatry patient is anxious and is amicable to consult
-Encouraged patient to take deep breaths
-Will encourage incentive spirometry
CXR: No acute cardiopulmonary abnormality
#CAD/HI/cardiac stent LAD 01/14/2025
-Continue atorvastatin 80 mg every afternoon, Plavix 75 mg daily, aspirin 81 mg daily, losartan 25 mg daily
Cardiac cath 01/14/25: Dominance: Right LM: Large, normal LAD:
Large vessel giving rise to 3 small diagonal branches.
There is a subtotal occlusion in the mid LAD at the bifurcation of D2. The D2 has severe ostial disease.
There is evidence of retrograde left to left collaterals from the proximal LAD septals supplying the mid-distal LAD LCx: Large vessel giving rise to a moderate caliber LPL1 and large LPL2.
There are trivial luminal irregularities only RCA: Large vessel giving rise to a moderate caliber RPDA, small RPL 1, moderate caliber RPL 2, and small distal.
Successful IVUS guided PCI to the mid LAD with SAEID x 1.
#Right radial pseudoaneurysm status post repair complication of cardiac cath 01/15/2025
Right wrist healed
#COPD hx
#Former smoker-quit 20 years ago
#Chronic bronchitis
#Pulmonary nodule
-Follows with Dr. ty
#GERD
Continue Protonix 40 mg every afternoon
#HTN�benign
BP 111/62
-Continue losartan 25 mg daily with hold parameters
#Former Daily alcohol use 2 drinks a day
Just stopped drinking 12 ounces of wine a day end of December 2023
#depression
- Continue duloxetine 60 mg at bedtime, Xanax 0.75 mg at bedtime
#Insomnia
Continue trazodone 50 mg at bedtime
#Chronic pain
-Continue tramadol 50 mg twice daily as needed moderate pain
diverticulosis Hx
DVT prophylaxis
Subcu heparin
Full code
--- NOTE | 2025-02-03 17:33 | W.PN.UPDATE ---
Update Note
Progress Note Update
This note serves as an addendum to the H&P by industrial energy engineer CECILIA Luz Marina CHAUHAN
HPI
74F HX CAD, s/p CC and Successful IVUS guided PCI to the mid LAD with SAEID x 1 ( 01/14/25 ) complicated by Right radial pseudoaneurysm, status post repair, 01/15/2025 seen at ER:
- ongoing intermittent dyspnea and chest pain.
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
- returned 3 days after s/p intervention with SoB. NEG w/u CT PE study . Then APL was switched to Plavix form from Brilinta for unclear reasons. She report compliant with all of her medication.
- return to ER with intermittent m SoB + harp anterior chest pains are different than her angina.
- denies fever, chills, night sweats, palpitations, abdominal pain, nausea, vomiting, diarrhea, urinary symptoms.
PMH:
Remote former smoker , ETOH mild use disorder
COPD
pulmonary nodule
CAD status post LAD PCI 01/14/2025, right radial pseudoaneurysm status post repair
Anxiety, depression,
Diverticulosis.
Vital Signs
Temp Pulse Resp BP Pulse Ox
97.8 F 69 16 132/68 98
02/03/25 11:03 02/03/25 16:45 02/03/25 16:45 02/03/25 16:00 02/03/25 16:45
PE
Gen: NAD
HEENT:anicteric
Neck: supple
Lungs: CTA
Cor: RRR S1S2
Abdomen: benign soft
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
MS: no edema
Psych: nl mood
Data
Unremarkable CBC
NEG TPNI
Unremarkable pro BNP
N Cr and nl eGFR
EKG
NORMAL SINUS RHYTHM
POSSIBLE LEFT ATRIAL ENLARGEMENT
MINIMAL VOLTAGE CRITERIA FOR LVH, MAY BE NORMAL VARIANT ( R in aVL )
SEPTAL INFARCT (CITED ON OR BEFORE 14-JAN-2025)
INFERIOR INFARCT (CITED ON OR BEFORE 14-JAN-2025)
T WAVE ABNORMALITY, CONSIDER ANTEROLATERAL ISCHEMIA
ABNORMAL ECG
WHEN COMPARED WITH ECG OF 03-FEB-2025 11:01,
SERIAL CHANGES OF EVOLVING SEPTAL INFARCT PRESENT
01/14/25 Cardiac cath
Right LM: Large, normal LAD:
- There is a subtotal occlusion in the mid LAD at the bifurcation of D2.
- The D2 has severe ostial disease.
- There is evidence of retrograde left to left collaterals from the proximal LAD septals supplying the mid-distal LAD LCx:
- Large vessel giving rise to a moderate caliber LPL1 and large LPL2.
- trivial luminal irregularities only RCA: Large vessel giving rise to a moderate caliber RPDA, small RPL 1, moderate caliber RPL 2, and small distal.
- Successful IVUS guided PCI to the mid LAD with SAEID x 1.
Last admission to [facility] Card service: 01/14/2025 - 01/17/2025
DISCHARGE DIAGNOSES:
1. Unstable angina with acute coronary syndrome.
2. Coronary artery disease.
3. Status post angioplasty with drug-eluting stent to the mid left
anterior descending, 01/14/2025.
4. Right radial pseudoaneurysm, status post repair, 01/15/2025. Hypertension.
5. Hyperlipidemia.
6. Hypertension.
7. Gastroesophageal reflux disease.
8. Anxiety.
9. Stable abdominal aorta atherosclerosis.
10. Tobacco abuse.
ASSESSMENT & PLAN
CP -NEG TPNI
Abnormal EKG report for serial changes for evolving septal infarct
Intermittent SoB : NEG recent CTC for PE and CP
Recent PCI to the mid LAD with SAEID x 1 ( 01/14/25)
LHC 01/14/25:
normal LM, subtotal occlusion mid LAD, LCx with LIs,
RCA with LIs; 3.0 x 22 mm [place] drug-eluting stent to mid-LAD; small jailed D2
TTE: EF 55-60%, apical septal HK
- Evaluate for non cardiac etiology like Anxiety or GERD
- c/w ASA, Plavix and Atorvastatin
- PPI on Protonix
- Not on BB due to bradycardia ( Ref to Degreaser Operator note from last admission )
- CBC Card consulted
- Psych consult
Reports very anxious all the time
Denied suicidal ideation or homicidal ideation
- Psych consult
R radial pseudoaneurysm s/p repair 01/15
Benign HTN
- CORRECTIVE THERAPIST Losartan
Abdominal aortic atherosclerosis
HX Statin intolerance
- rosuvastatin caused fatigue
- pravastatin caused headaches
- now on atorvastatin
Former tobacco abuse
DVT Px: SQH
Full code
Obs TLM
--- NOTE | 2025-02-03 20:00 | PTCARENOTE ---
Pt arrived to 3 west from ED via stretcher. Pt able to ambulate into bed 317-2 with staff assistance. Pt AAOx3, oriented to room, call gale within reach. Will continue to monitor pt.
[2025-02-03] MEDS: HEPARIN 5000 UNITS SC (20:26)
[2025-02-03] MEDS: PROTONIX 40 MG PO (20:27)
[2025-02-03] MEDS: LIPITOR 80 MG PO (20:27)
[2025-02-03] MEDS: ULTRAM 50 MG PO (20:42)
[2025-02-03] MEDS: DESYREL 50 MG PO (21:47)
[2025-02-03] MEDS: CYMBALTA DELAYED RELEASE 60 MG PO (21:47)
[2025-02-03] MEDS: XANAX 0.75 MG PO (21:47)
[2025-02-04 01:04] LABS: Troponin I < 0.012 ng/ml
[2025-02-04 03:25] VITALS: BP 121/51
[2025-02-04 06:00] VITALS: BMI 22.6
[2025-02-04 07:05] VITALS: BP 135/77
[2025-02-04 07:21] LABS: % Basophils 1.1 % (0-2); % Eosinophils 4.8 % (0-6); % Immature Granulocytes 0.3 % (0-0.5); % Lymphocytes 41.5 % (20.5-51.1); % Monocytes 7.9 % (1.7-9.3); % Neutrophils 44.4 % (42.2-75.2); Absolute Eosinophils 0.2 10^3/uL (0-0.7); Absolute Lymphocytes 1.6 10^3/uL (1.2-3.4); Absolute Monocytes 0.3 10^3/uL (0.1-0.6); Absolute Neutrophils 1.7 10^3/uL (1.4-6.5); Hematocrit 33.5 % (37.0-47.0); Hemoglobin 12.2 g/dL (12.0-16.0); Mean Corp Hgb Conc. 36.4 g/dL (33.0-37.0); Mean Corpuscular Hgb 34.9 pg (27.0-31.0); Mean Corpuscular Volume 95.7 fL (81.0-99.0); Mean Platelet Volume 10.7 fL (7.4-10.4); Nucleated Red Blood Cells % 0 %; Platelet Count 253 10^3/uL (130-400); Red Cell Dist. Width 11.2 % (11.5-14.5); White Blood Cell Count 3.8 10^3/uL (4.8-10.8)
--- NOTE | 2025-02-04 08:05 | W.PN.HOSP.TC ---
Today's Communication/Plan
-
Pulmonology consult
Assessment / Plan
Assessment / Plan
Impression:
74F HX CAD, s/p CC and Successful IVUS guided PCI to the mid LAD with SAEID x 1 ( 01/14/25 ) complicated by Right radial pseudoaneurysm, status post repair, 01/15/2025 seen at ER:
- ongoing intermittent dyspnea and chest pain. Chronic anxiety, cardiology and psych consulted.
Stress echo done 02/04:
Non-diagnostic study as the patient achieved 80% maximally predicted heart rate.
No echo or EKG evidence of myocardial ischemia to the level of exercise achieved.
Pulmonology consult
Assessment/plan
Acute on chronic dyspnea unclear etiology possible pulmonary component .
97% RA,COVID/influenza negative
proBNP 190
Cardiology consulted.
Stress echo done 02/04:
Non-diagnostic study as the patient achieved 80% maximally predicted heart rate.
No echo or EKG evidence of myocardial ischemia to the level of exercise achieved.
Patient with remote history of smoking but no official diagnosis of COPD.
Not on any inhalers at home.
Pulmonology consulted
Anxiety
-Consult psychiatry patient is anxious and is amicable to consult
-
Coronary artery disease/NH/cardiac stent LAD 01/14/2025
-Continue atorvastatin 80 mg every afternoon, Plavix 75 mg daily, aspirin 81 mg daily, losartan 25 mg daily
Cardiac cath 01/14/25: Dominance: Right LM: Large, normal LAD:
Large vessel giving rise to 3 small diagonal branches.
There is a subtotal occlusion in the mid LAD at the bifurcation of D2. The D2 has severe ostial disease.
There is evidence of retrograde left to left collaterals from the proximal LAD septals supplying the mid-distal LAD LCx: Large vessel giving rise to a moderate caliber LPL1 and large LPL2.
There are trivial luminal irregularities only RCA: Large vessel giving rise to a moderate caliber RPDA, small RPL 1, moderate caliber RPL 2, and small distal.
Successful IVUS guided PCI to the mid LAD with SAEID x 1.
Stress echo done 02/04:
Non-diagnostic study as the patient achieved 80% maximally predicted heart rate.
No echo or EKG evidence of myocardial ischemia to the level of exercise achieved.
Right radial pseudoaneurysm status post repair complication of cardiac cath 01/15/2025
Right wrist healed
GERD
Continue Protonix 40 mg every afternoon
HTN�benign
BP 111/62
-Continue losartan 25 mg daily with hold parameters
Former Daily alcohol use 2 drinks a day
Just stopped drinking 12 ounces of wine a day end of December 2023
Depression
- Continue duloxetine 60 mg at bedtime, Xanax 0.75 mg at bedtime
Psych consulted
Insomnia
Continue trazodone 50 mg at bedtime
Chronic pain
-Continue tramadol 50 mg twice daily as needed moderate pain
CODE STATUS: Full code
DVT prophylaxis: Heparin
Diet: Cardiac diet
Total time spent on today's encounter was 65 minutes which included time spent in counseling the patient/family regarding diagnosis and treatment plan as listed above, goals of care, and symptom management. Case was discussed with nursing staff,
specialists, and care coordinators/case management. All labs and imaging personally reviewed by me. Remainder the time spent in detailed review of previous records, lab data, imaging, and other medical provider documentation.
Anticipated Discharge: 24 - 48 hours
Subjective/Interval History
-
Date of Service: February 04, 2025
Patient seen and examined at bedside, denies any chest pain , shortness of breath Improved, no abdominal pain, no nausea, no vomiting, no diarrhea or constipation.
Discussed with family at bedside, will obtain pulmonology consult.
Objective Data
-
Labs:
Laboratory Results
02/04/25
06:50
WBC 3.8 L
Hgb 12.2
Hct 33.5 L
Plt Count 253
Sodium Pending
Potassium Pending
Chloride Pending
Carbon Dioxide Pending
BUN Pending
Creatinine Pending
Glucose Pending
Calcium Pending
Total Bilirubin Pending
AST Pending
ALT Pending
Alkaline Phosphatase Pending
Vital Signs:
Vital Signs
Temp Pulse Resp BP Pulse Ox
97.8 F 89 18 135/77 98
02/04/25 07:05 02/04/25 07:05 02/04/25 07:05 02/04/25 07:05 02/04/25 07:36
Physical Exam
-
General: Well Developed, Well Nourished, No Apparent Distress and Comfortable
HEENT: Normocephalic, Atraumatic, Moist Mucous Membranes, No Ptosis, PERRLA and Nose Appears Normal
Respiratory: Rales and Non Labored Respirations
Cardiac: Regular Rhythm and S1/S2
Breast: Deferred by me
GI: Soft, Nontender, Nondistended and Normal Bowel Sounds
Genito-urinary: No Costovertebral Tender
Musculoskeletal: No Clubbing, No Cyanosis and No Edema
Skin: Warm
Neuro: Awake, Alert, Oriented, AO x 3 and No Motor Deficits
Psych: Calm
Data Reviewed
-
Diagnostic Radiology: Image personally visualized and interpreted and Report Reviewed by me
CT Scan: Image personally visualized and interpreted and Report Reviewed by me
Ultrasound: Image personally visualized and interpreted and Report Reviewed by me
MRI: Image personally visualized and interpreted and Report Reviewed by me
Medical Tests (Nuc Med, Echo etc): Image personally visualized and interpreted and Report Reviewed by me
Labs: Labs Reviewed by me
Old Records: Reviewed
[2025-02-04 08:12] LABS: ALT (SGPT) 18 U/L (0-35); AST (SGOT) 21 U/L (14-36); Albumin 3.7 g/dl (3.5-5.0); Alkaline Phosphatase 60 U/L (38-126); Blood Urea Nitrogen 16 mg/dl (7-17); Calcium 9.7 mg/dl (8.4-10.2); Carbon Dioxide 25 mmol/L (22-30); Chloride 107 mmol/L (98-107); Estimated Creatinine Clearance 62 ml/min; Glucose 93 mg/dl (70-99); Potassium 4.3 mmol/L (3.5-5.1); Sodium 141 mmol/L (135-145); Total Bilirubin 0.6 mg/dl (0.2-1.3); Total Protein 6.1 g/dl (6.3-8.2); eGFR > 60.00
--- NOTE | 2025-02-04 08:29 | VNURNOTE ---
Chart reviewed. Patient is current with [facility] nursing, PT, OT. Will continue to follow hospital course and DC plans.
[2025-02-04] MEDS: PLAVIX 75 MG PO (08:47)
[2025-02-04] MEDS: COZAAR 25 MG PO (08:47)
[2025-02-04] MEDS: LOW STRENGTH ASPIRIN 81 MG PO (08:47)
[2025-02-04] MEDS: HEPARIN 5000 UNITS SC (08:48)
[2025-02-04 11:05] VITALS: BP 137/69
--- NOTE | 2025-02-04 11:30 | CON.PUL ---
Consultation
Consultation Request
Date/Time Consultation Requested: 02/04/2025 - 1121
Date/Time Consultation Performed: 02/04/2025 - 1125
Requesting Provider: Dr. Viera
Performing Provider: Dr. Gee
Reason for Consultation: SOB/Abnormal CT Chest
Medical History
-
Chief Complaint: SOB
History of Present Illness:
74-year-old female with a past medical history of CAD s/p SAEID to mid LAD (01/14/2025) complicated by right radial artery pseudoaneurysm s/p repair by vascular surgery (Dr. Hdez) on 01/15/2025, GERD, dyslipidemia, diverticulosis, anxiety, depression,
history of pneumonia, Hx of bronchitis, mild JOHN, history of COVID-19 (03/2022), and restrictive lung disease who presents with SOB. She reports she has intermittent dyspnea which usually lasts only 30 seconds or so but prior to arrival it lasted
for about an hour. She was recently here in the hospital from 01/14 - 01/17/2025 after having a left heart catheterization requiring a SAEID to the mid LAD with procedure complicated by a right radial artery pseudoaneurysm which was repaired by Dr. Hdez
on 01/15/2025. After discharge she returned to the ER the next day on 01/18 with SOB with significant fatigue. She was afebrile at the time and hemodynamically stable. Troponin was mildly elevated and peaked at 0.102 with Hb 13 at the time. CTA
chest at the time showed no evidence of a central PE, with chronic biapical pleural/parenchymal changes with linear scarring in the left lower lobe and significant bronchial wall thickening in the superior/anterior left lower lobe with top normal
pulmonary interstitium. Cardiology discussed the case with the ER and she was changed from ticagrelor to Plavix and was loaded in the ER. She was discharged home in stable condition. She now feels like she cannot take in a deep breath. In the ER
she was afebrile to 97.8 �F, pulse rate 92, respiratory rate 18, BP 113/63 and she was saturating 100% on room air. Labs showed WBC 4.9, Hb 13.7, absolute eosinophils 200, calcium 10.5, troponin 0.019, proBNP 190, and COVID-19 antigen negative.
CXR showed bibasilar atelectasis. She was admitted under observation to telemetry under the hospitalist with intermittent dyspnea likely due to anxiety. Due to her intermittent SOB, Pulmonary service now consulted for additional
management/recommendations.
When I saw the pt she was resting in bed in NAD. She denies a daily cough although says she gets a cough from post-nasal drip. Her last episode of bronchitis was >1 year ago. At home, she has a VNA 2x a week, and also has PT/OT 2x a week. She
feels more weak/fatigued since she was discharged few weeks ago. She denies hearing herself wheeze, and says her SOB happens randomly throughout the day, and denies any increased SOB at night and no nocturnal awakening with SOB or cough. She is
leaving for [place] in 3 weeks.
Of note patient follows with us in the pulmonary office with last visit on 11/29/[address] Lopez. She had previously had inspiratory squeaks and wheezing which was resolved on this last office visit; she previously was on Breo but has been off
this since August 2022. She has a 4.5 mm right middle lobe nodule which was present on prior CT as distant as 2013 and has remained stable compared to last CT chest in November 2021. She has had a history of multiple pneumonias with a prolonged
hospital stay at age 13, and she describes chronic recurrent bronchitis. Her spirometry from this last office visit on 11/29/2024 showed a mild restrictive lung defect with FVC 69% predicted/2.04 L, with FEV1/FVC 88 / 117% and FEV1 was 81% / 1.79 L.
Her last full PFT was on 09/20/2024 showing a mild�moderate restriction with TLC 68% predicted, vital capacity 74% predicted. Her diffusing capacity was moderately reduced at 58% predicted however when accounting for alveolar volume involved in
gas exchange it was normal at 80% predicted. Previous PFT on 09/13/2021 showed mild restrictive lung disease with TLC 79% predicted, VC was 82%, DLco was 62% and DLco/VA: 85%.
PMHx: CAD s/p SAEID x 1 to mid-LAD (01/14/2025) c/b right radial artery pseudoaneurysm s/p repair on 01/15/2025, GERD, depression, anxiety, history of pneumonia, Hx of bronchitis, cataracts, gallbladder disease, pulmonary nodule, former tobacco smoker,
mild JOHN, chronic rhinitis, history of COVID-19 (March 2022), diverticulosis, postnasal drip and restrictive lung disease
PSHx: Bilateral tubal ligation, cholecystectomy, D&C, bilateral oophorectomy due to cyst, rhinoplasty due to deviated septum
Past Medical History
Past Medical History: Other (Above as per HPI)
Past Surgical History: Other (Above as per HPI)
Social History
Tobacco: Former Smoker ([id number] history, quit 2001)
Alcohol: Occasional
Drug: None
Employment: Retired ([employer])
Family History
Family History: CAD (Father + mother), Cancer (Sister: Breast cancer; Brother: bladder + prostate cancer) and Other (Sibling: Down syndrome)
Allergies / Home Medications
Allergies
Allergy/AdvReac Type Severity Reaction Status Date / Time
No Known Allergies Allergy Verified 01/14/25 11:26
Home Medications
�Medication �Instructions �Recorded �Confirmed �Last Taken �Type
alprazolam 0.25 mg tablet 0.75 mg PO HS Sleep 02/17/14 02/03/25 02/02/25 History
duloxetine 60 mg capsule,delayed 60 mg PO HS Mental Health/Anxiety 02/17/14 02/03/25 02/02/25 History
release
pantoprazole 40 mg tablet,delayed 40 mg PO QPM Gastrointestinal Issue 01/14/25 02/03/25 02/02/25 History
release (Protonix)
trazodone 50 mg tablet 50 mg PO HS Sleep 01/14/25 02/03/25 02/02/25 History
aspirin 81 mg chewable tablet 81 mg PO DAILY #0 tabs 01/15/25 02/03/25 02/03/25 Rx
atorvastatin 80 mg tablet 80 mg PO QPM #90 tabs 01/15/25 02/03/25 02/02/25 Rx
losartan 25 mg tablet 25 mg PO DAILY #90 tabs 01/15/25 02/03/25 02/02/25 Rx
clopidogrel 75 mg tablet (Plavix) 75 mg PO DAILY #30 tabs 01/18/25 02/03/25 02/02/25 Rx
polyethylene glycol 3350 17 gram 17 g PO DAILYPRN PRN mild pain 02/03/25 02/03/25 02/02/25 History
oral powder packet (Miralax)
tramadol 50 mg tablet 50 mg PO BIDPRN PRN moderate pain 02/03/25 02/03/25 Unknown History
Review of Systems
-
History Source: Patient
All other systems: Negative unless noted
Vitals / Labs / Diagnostic Testing
Vital Signs
Temp Pulse Resp BP Pulse Ox
98.2 F 71 17 137/69 97
02/04/25 11:05 02/04/25 11:05 02/04/25 11:05 02/04/25 11:05 02/04/25 11:05
Lab Data
02/04/25 06:50
02/04/25 06:50
Laboratory Results
02/03/25
11:14
PT 13.8
INR 1.03
APTT 26.6
Microbiology
02/03/25 11:14 Nasal Swab Influenza Types A & B (NEETU) - Final
Negative for Influenza A & B, NAAT
Negative results must be combined with clinical observations
and patient history.
Nucleic Acid Amplification test (NAAT)performed on the
[employer] platform.
Diagnostic Testing:
Physical Exam
-
HEENT: Normocephalic and Anicteric
Cardiovascular: S1/S2, Murmur (CASA, grade II/, heard across upper precordium) and Peripheral Edema (negative)
Respiratory: Wheeze (negative), Rales (bibasilar (L>R)), Rhonchi (negative) and Non-Labored Respirations
GI: Soft, Non Distended, Non Tender and Normal Bowel Sounds
Neurology: AO x 3 and Tremors (negative)
Skin: Warm and Dry
General: Respiratory Distress (negative), Comfortable, Fever (negative) and Chills (negative)
Assessment
-
Assessment: 74-year-old female with a past medical history of CAD s/p SAEID to mid LAD (01/14/2025) complicated by right radial artery pseudoaneurysm s/p repair by vascular surgery (Dr. Hdez) on 01/15/2025, GERD, dyslipidemia, diverticulosis, anxiety,
depression, history of pneumonia, Hx of bronchitis, mild JOHN, history of COVID-19 (03/2022), and restrictive lung disease who presents with SOB. She reports she has intermittent dyspnea which usually lasts only 30 seconds or so but prior to arrival
it lasted for about an hour. She was recently here in the hospital from 01/14 - 01/17/2025 after having a left heart catheterization requiring a SAEID to the mid LAD with procedure complicated by a right radial artery pseudoaneurysm which was repaired
by Dr. Hdez on 01/15/2025. After discharge she returned to the ER the next day on 01/18 with SOB with significant fatigue. She was afebrile at the time and hemodynamically stable. Troponin was mildly elevated and peaked at 0.102 with Hb 13 at the
time. CTA chest at the time showed no evidence of a central PE, with chronic biapical pleural/parenchymal changes with linear scarring in the left lower lobe and significant bronchial wall thickening in the superior/anterior left lower lobe with
top normal pulmonary interstitium. Cardiology discussed the case with the ER and she was changed from ticagrelor to Plavix and was loaded in the ER. She was discharged home in stable condition. She now feels like she cannot take in a deep breath.
In the ER she was afebrile to 97.8 �F, pulse rate 92, respiratory rate 18, BP 113/63 and she was saturating 100% on room air. Labs showed WBC 4.9, Hb 13.7, absolute eosinophils 200, calcium 10.5, troponin 0.019, proBNP 190, and COVID-19 antigen
negative. CXR showed bibasilar atelectasis. She was admitted under observation to telemetry under the hospitalist with intermittent dyspnea likely due to anxiety. Due to her intermittent SOB, Pulmonary service now consulted for additional
management/recommendations
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
tobacco smoker, mild JOHN, chronic rhinitis/PND, history of COVID-19 (March 2022), diverticulosis, postnasal drip and restrictive lung disease
Impression:
#SOB
#Mild restrictive lung disease with FVC 69% predicted via spirometry on 11/29/2024, and prior TLC was 68% in September 2024, compared to 79% predicted in 2020
#Post-nasal drip with occasional cough
#Former tobacco use � [id number] history, quit 2001
#History of pneumonia with hx of recurrent bronchitis (last episode >1 year ago)
#History of COVID-19 � March 2022
#Mild obstructive sleep apnea (not on CPAP; advised to use positional therapy)
Plan:
- Patient endorses intermittent SOB with difficulty inhaling, and can occur randomly and no wheezing reported or cough unless she has post nasal drip; current CXR shows worsening atelectasis in the posteromedial bases bilaterally; she has been
feeling fatigued since her recent hospitalization earlier this month for which she obtained a SAEID to her mid LAD. She was in the ER on 01/18/2025 and her ticagrelor was changed to Plavix at that time due to significant fatigue. She does have
chronic interstitial lung abnormalities with biapical pleural/parenchymal changes, with linear scarring in the left lower lobe and significant bronchial wall thickening in the superior�anterior left lower lobe. These chronic TESSIE changes are stable
compared to prior CT chest from November 2021
- Also, she does not have COPD as most recent spirometry from 11/29/2024 showed an FEV1/FVC of 88 with no expiratory scooping seen on flow-volume loop, and prior PFTs from 09/2024 and 09/2021 also show FEV1/FVC>70
- She does have restrictive lung disease, which has been mild and in past was moderate severity, likely due to physical deconditioning/musculoskeletal weakness causes as her DLco is moderately reduced but it corrects to normal and she has no
evidence of pulmonary HTN, her RV is normal size/function on most recent echo on 01/15/2025 and she is not anemic
- Sometimes patients with asthma/reactive airway disease can have a low DLco that corrects to normal, so I would treat her with DuoNebs TID as a trial while she remains hospitalized to see if this improves her SOB; she did previously have wheezing
on exam per Dr. Lopez and was on breo in past but stopped this in 08/2022; she apparently had respiratory symptoms previously after being exposed to the cleaning product, Kaboom. Would DC home on Breyna 160mcg 2 puffs BID or an equivalent inhaler
- prn nebulized bronchodilators - not currently bronchospastic
- She is on room air saturating >96%, she is not anemic, her serum bicarbonate level is WNL at 25 (27 yesterday which is at her baseline) and her troponin was negative x3. Pro-BNP also WNL at 190.
- Would recommend her to increase activity as tolerated and to use incentive spirometer q1hr while awake to help prevent her atelectasis from worsening; would have her go home with an incentive spirometer for continued use
- Believe that large component of her current Sx is due to recent hospitalization with deconditioning in setting of known restrictive lung disease
- Maintain SpO2 >90-94% with supplemental O2 as needed
- Replete electrolytes with K>4, Mg>2
- Trend H/H and transfuse if needed to keep Hb>7g/dL; keep plt>20k, unless there is concern for bleeding then keep plt>50k
- Maintain euglycemia with goal BG >100 and <180
- DVT : HSQ ppx
Patient likely to go home later today. Will continue to follow along while she remains hospitalized. She will follow-up with our office with Dr. Lopez as last visit was on 11/29/2024.
Data:
CXR 02/03/2025: No acute pulmonary process identified.
CTA Chest 01/18/2025:
No evidence of central pulmonary embolism.
Chronic predominantly pleural/parenchymal changes bilaterally again seen.
Pulmonary interstitium at least top normal. Cannot exclude mild interstitial edema or pneumonitis.
Outpatient [facility] data:
PFT:
������[place] 11/29/24: FVC 2.04/69%, FEV1 1.79/81%, ratio 88
PFT 09/20/24: FVC 2.09/70%, FEV1 2.00/89%, ratio 96.� TLC 3.53/68%, DLCO 12.57/58%.� Mild restriction with moderate gas exchange defect.� When compared to 2020, TLC was decreased from 4.11-3.53.� DLCO stable
[place] 10/31/23: FVC 2.30/77%, FEV1 1.86/83%, ratio 81
[place] 06/13/23: FVC 2.24/74%, FEV1 1.90/84%, ratio 85
PFT 09/13/21: FVC 2.53/82%, FEV1 2.15/92%, ratio 85. TLC 4.11/79%, DLCO 13.71/62% . This has improved compared to prior spirometry
[place] 07/28/21: FVC 2.01/60%, FEV1 1.76/70%, ratio 88. There is evidence of reactive small airways disease.
6 MWT:
������6MWT 10/31/23: total distance 1200 feet, 98% room air, heart rate 107, dyspnea scale 2/10
6MWT 09/15/21: Total distance 960 feet, 97% room air, heart rate 114, dyspnea scale 3/10.
RADIOGRAPHIC STUDIES:
������CXR 09/24/24: No active disease
CXR 06/14/23: biapical scar, stable. No acute findings
CT chest 11/12/21: 4.5 mm right middle lobe nodule, no change. Miild biapical scar
CXR 07/13/21: Per report, hyperaeration with apical pleural thickening, no acute findings
CXR 02/27/19: no active disease
CT Abd 05/15/18 ([facility]): Lung bases are clear, per report
Abd CT 04/18/17: mild atelectasis at base per report
CT chest 02/17/14: negative for PE. No adenopathy. Mild biapical pleural-parenchymal disease. 4.5 mm right middle lobe nodule.
CARDIAC STUDIES:
������Echo 10/17/23: Normal biventricular function, no significant valvular disease.
LABS:
������07/25/24: Negative QuantiFERON Gold TB test
02/27/19: White count 4.1, hemoglobin 13.2, serum bicarbonate 28, normal creatinine, calcium, liver function, TSH.
Hemoglobin:
������09/20/2024- SpHb 11.5.
POLYSOMNOGRAM:
������HST 11/11/24: Total index 6.8, desaturation samaria 86%.
Total time spent today was 57 minutes for this encounter. Time includes reviewing laboratory test/imaging results, reviewing pertinent medical records, obtaining and reviewing medical history, performing an appropriate exam, ordering medications,
tests and procedures. Time also includes documentation of this encounter, coordinating patient care and communicating with other healthcare professionals. Total time does not include separately billed tests performed on this date of service.
--- NOTE | 2025-02-04 13:23 | W.PN.CD ---
Today's Communication / Plan
-
OK for home.
Our office has arranged f/u and reached out to patient
Impression / Plan
-
SOB, dizziness:
-suspect not related to CAD
CAD => stress test nondiagnostic but no ischemia at workload achieved
- Reviewed images of cath/PCI with Dr. Robledo. Near total occlusion at start and excellent result of PCI. No concerns of procedural issues upon review of completion angiogram
- LVEDP was normal at cath so heart failure does not seem like a cause ofher symptoms
GERD:
-PPI
Former tobacco:
-quit 25 years ago
HTN:
-stable, on ARB
Subjective: Doing well.
Data:
Cardiac cath 01/14/25: Dominance: Right LM: Large, normal LAD: Large vessel giving rise to 3 small diagonal branches. There is a subtotal occlusion in the mid LAD at the bifurcation of D2. The D2 has severe ostial disease. There is evidence of
retrograde left to left collaterals from the proximal LAD septals supplying the mid-distal LAD LCx: Large vessel giving rise to a moderate caliber LPL1 and large LPL2. There are trivial luminal irregularities only RCA: Large vessel giving rise to a
moderate caliber RPDA, small RPL 1, moderate caliber RPL 2, and small distal. Successful IVUS guided PCI to the mid LAD with SAEID x 1.
Physical Exam
Vital Signs/Labs
Vital Signs
Temp Pulse Resp BP Pulse Ox
98.2 F 71 17 137/69 97
02/04/25 11:05 02/04/25 11:05 02/04/25 11:05 02/04/25 11:05 02/04/25 11:05
02/03/25 02/04/25 02/05/25
06:59 06:59 06:59
Actual Weight 61.734 kg
02/04/25 06:50
02/04/25 06:50
PT 13.8 Sec (11.4-14.6) 02/03/25 11:14
INR 1.03 02/03/25 11:14
APTT 26.6 Sec (23.4-35.0) 02/03/25 11:14
02/03/25
11:14
Xhy-G-Flzckljukil Pept 190
LAB Results
02/03/25 02/03/25 02/04/25
11:14 17:58 00:20
Troponin I 0.019 0.020 < 0.012 D
Physical Exam
Constitutional: No acute distress
EENT: Anicteric
Cardiovascular: Rhythm & rate is regular and Pedal edema is absent
Respiratory: Respiratory effort normal and Lungs clear to auscul.
GI: Soft and Distention absent
Neuro/Psych: AO x 3
Data Reviewed
-
Date of Service: February 04, 2025
--- NOTE | 2025-02-04 13:54 | CM ---
Addendum entered by Fani Weiss 02/04/25 14:04:
correction: patient current with VN
Original Note:
Patient seen at bedside
IA Completed
OBS status - form explained & signed. In chart
Psych consult
Lives with , daughter & grand-daughter in a 2 story home, 2 steps to enter, flight to second floor bed/bath
PLOF: Independent
Denies DME
Denies VN/Rehab
PCP: Dinaa Sousa
Pharmacy: [facility]
PLAN: home, no needs anticipated
[2025-02-04 14:17] VITALS: BMI 22.6
--- NOTE | 2025-02-04 14:34 | CS.PSYCHR ---
Consult Summary - Psychiatry
-
Pt is 74 yo female admitted with intermittent dyspnea; had recent admission 01/14/2025- 1 stent placed in LAD, complicated by a right radial artery pseudoaneurysm requiring vascular surgery intervention on 01/15/25. Psychiatry asked to evaluate
anxiety. Pt seen reclining in bed, awake alert, calm, in no distress. Pt reports she has been prescribed Xanax for many years, usually takes only at night. Pt states she has long-term 'high anxiety' due to stress at home with her . Pt
states she has tried couples counseling, but walks out. Pt does not plan to leave him, states he would fall apart without her. Discussed possibility of trying Buspar; pt plans to discuss with her PCP.
PMH: GERD, COPD, former smoker quit 20 years ago, chronic bronchitis, pulmonary nodule, CAD status post LAD PCI 01/14/2025, right radial pseudoaneurysm status post repair, diverticulosis.
Psych Hx: anxiety, prescribed Xanax for '30 years', has had therapy in the past. Also on Cymbalta, Trazodone. No hx of inpatient tx
SH: lives with of 54 years, has children and grandchildren. Hx of drinking 2 glasses of wine per day, reportedly stopped in December 2024
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 Pt plans to go to [place] for her niece's wedding
MSE: alert, oriented, calm, cooperative, good eye contact, no acute distress. Mood stable, affect appropriate. Speech coherent, thought clear. No signs of psychosis. Insight intact
Imp: Unspecified anxiety d/o, overall appears stable, c/o long-term marital stress
Rec: continue current medications; Outpatient f/u with PCP for continued anxiety med mgt upon return home
Psychiatry will sign off. Please re-consult for any immediate issues
[2025-02-04] MEDS: DUONEB 3 ML INH (14:57)
[2025-02-04 15:05] VITALS: BP 118/67
--- NOTE | 2025-02-04 15:07 | W.DCSUMMARY ---
Discharge Summary
Discharge Data
Date of Admission: 02/03/25
Date of Discharge: 02/04/25
-
Pending Results: No
Hospital Course
Hospital course
74F HX CAD, s/p CC and Successful IVUS guided PCI to the mid LAD with SAEID x 1 ( 01/14/25 ) complicated by Right radial pseudoaneurysm, status post repair, 01/15/2025 seen at ER:
- ongoing intermittent dyspnea and chest pain. Chronic anxiety, cardiology and psych consulted.
Stress echo done 02/04:
Non-diagnostic study as the patient achieved 80% maximally predicted heart rate.
No echo or EKG evidence of myocardial ischemia to the level of exercise achieved.
Cleared for discharge by cardiology
Pulmonology consult
Recommending to discharge on Breyna 160mcg 2 puffs BID
During hospitalization patient was treated from the [facility]
Acute on chronic dyspnea unclear etiology possible pulmonary component .
97% RA,COVID/influenza negative
proBNP 190
Cardiology consulted.
Stress echo done 02/04:
Non-diagnostic study as the patient achieved 80% maximally predicted heart rate.
No echo or EKG evidence of myocardial ischemia to the level of exercise achieved.
Patient with remote history of smoking but no official diagnosis of COPD.
Not on any inhalers at home.
Cleared for discharge by cardiology
Pulmonology consult
Recommending to discharge on Breyna 160mcg 2 puffs BID
Anxiety
-Consult psychiatry patient is anxious and is amicable to consult
-
Coronary artery disease/CO/cardiac stent LAD 01/14/2025
-Continue atorvastatin 80 mg every afternoon, Plavix 75 mg daily, aspirin 81 mg daily, losartan 25 mg daily
Cardiac cath 01/14/25: Dominance: Right LM: Large, normal LAD:
Large vessel giving rise to 3 small diagonal branches.
There is a subtotal occlusion in the mid LAD at the bifurcation of D2. The D2 has severe ostial disease.
There is evidence of retrograde left to left collaterals from the proximal LAD septals supplying the mid-distal LAD LCx: Large vessel giving rise to a moderate caliber LPL1 and large LPL2.
There are trivial luminal irregularities only RCA: Large vessel giving rise to a moderate caliber RPDA, small RPL 1, moderate caliber RPL 2, and small distal.
Successful IVUS guided PCI to the mid LAD with SAEID x 1.
Stress echo done 02/04:
Non-diagnostic study as the patient achieved 80% maximally predicted heart rate.
No echo or EKG evidence of myocardial ischemia to the level of exercise achieved.
Right radial pseudoaneurysm status post repair complication of cardiac cath 01/15/2025
Right wrist healed
GERD
Continue Protonix 40 mg every afternoon
HTN�benign
BP 111/62
-Continue losartan 25 mg daily with hold parameters
Former Daily alcohol use 2 drinks a day
Just stopped drinking 12 ounces of wine a day end of December 2023
Depression
- Continue duloxetine 60 mg at bedtime, Xanax 0.75 mg at bedtime
Psych consulted
Insomnia
Continue trazodone 50 mg at bedtime
Chronic pain
-Continue tramadol 50 mg twice daily as needed moderate pain
CODE STATUS: Full code
DVT prophylaxis: Heparin
Diet: Cardiac diet
Total time spent on today's encounter was 40 minutes which included time spent in counseling the patient/family regarding diagnosis and treatment plan as listed above, goals of care, and symptom management. Case was discussed with nursing staff,
specialists, and care coordinators/case management. All labs and imaging personally reviewed by me. Remainder the time spent in detailed review of previous records, lab data, imaging, and other medical provider documentation.
Anticipated Discharge: Today
Discharge Plan
-
Patient Disposition: Home (Routine Discharge)
Discharge Diagnosis/Procedures: Acute on chronic dyspnea
Anxiety
Coronary artery disease
Hypertension.
GERD
Depression
Diet: Low Cholesterol
Activity: With assistance and As tolerated
Referrals:
Latricia Lopez MD [Active] - in two to three weeks
Diana Sousa DO [Family Provider] -
Sourav Santiago MD [Active] - in two to three weeks
Prescriptions:
New
budesonide-formoterol [Breyna] 160-4.5 mcg/actuation HFA aerosol inhaler
2 puff inhalation BID Qty: 10.2 0RF
Rx Instructions:
Rinse mouth after use.
Continued
alprazolam 0.25 MG tablet
0.75 mg PO HS
duloxetine 60 MG capsule,delayed release(DR/EC)
60 mg PO HS
trazodone 50 mg Tablet
50 mg PO HS
pantoprazole [Protonix] 40 mg Tablet,Delayed Release (Dr/Ec)
40 mg PO QPM
losartan 25 mg Tablet
25 mg PO DAILY Qty: 90 3RF
atorvastatin 80 mg Tablet
80 mg PO QPM Qty: 90 3RF
aspirin 81 mg Tablet,Chewable
81 mg PO DAILY Qty: 0 0RF
clopidogrel [Plavix] 75 mg tablet
75 mg PO DAILY Qty: 30 0RF
tramadol 50 mg tablet
50 mg PO BIDPRN PRN (Reason: moderate pain)
polyethylene glycol 3350 [Miralax] 17 gram Powder In Packet
17 g PO DAILYPRN PRN (Reason: mild pain)
Discharge Orders:
Discharge Patient (As Directed); Ordered 02/04/25
Ordered By: Sigrid Viera
Discharge Date and Time
Print Language: BENINESE
== END 2025-02-04 16:09 | disposition home health service (06) ==
LOC: 3 WEST ACU 18:02
PROVIDERS: Clinical Nurse Specialist Family Health; Nurse Practitioner; ADMITTING PHYSICIAN Internal Medicine; ATTENDING PHYSICIAN General Practice; CONSULT PHYSICIAN Internal Medicine Cardiovascular Disease; CONSULT PHYSICIAN Internal Medicine Critical Care Medicine; EMERGENCY PHYSICIAN Emergency Medicine; FAMILY PHYSICIAN Family Medicine; OTHER PHYSICIAN Psychiatry & Neurology Psychiatry
DX: R06.09 Other forms of dyspnea (principal); F41.9 Anxiety disorder, unspecified; R06.02 Shortness of breath; R07.89 Other chest pain; F32.A Depression, unspecified; K21.9 Gastro-esophageal reflux disease without esophagitis; K57.90 Diverticulosis of intestine, part unspecified, without perforation or abscess without bleeding; R51.9 Headache, unspecified; I10 Essential (primary) hypertension; R09.82 Postnasal drip; I21.9 Acute myocardial infarction, unspecified; J44.89 Other specified chronic obstructive pulmonary disease; R91.1 Solitary pulmonary nodule; F10.91 Alcohol use, unspecified, in remission; G47.33 Obstructive sleep apnea (adult) (pediatric); I25.10 Atherosclerotic heart disease of native coronary artery without angina pectoris; R42 Dizziness and giddiness; G89.29 Other chronic pain; G47.00 Insomnia, unspecified; I70.0 Atherosclerosis of aorta; E78.00 Pure hypercholesterolemia, unspecified; R53.83 Other fatigue; Q67.6 Pectus excavatum; Z90.49 Acquired absence of other specified parts of digestive tract; Z90.5 Acquired absence of kidney; Z87.891 Personal history of nicotine dependence; Z82.49 Family history of ischemic heart disease and other diseases of the circulatory system; Z79.02 Long term (current) use of antithrombotics/antiplatelets; Z63.0 Problems in relationship with spouse or partner; Z80.3 Family history of malignant neoplasm of breast; Z80.52 Family history of malignant neoplasm of bladder; Z80.42 Family history of malignant neoplasm of prostate; Z11.52 Encounter for screening for COVID-19; Z95.5 Presence of coronary angioplasty implant and graft; Z79.899 Other long term (current) drug therapy; Z86.79 Personal history of other diseases of the circulatory system
CPT/HCPCS: 93017; 71046; 80053; 83880; 84484; 85025; 85610; 85730; 87502; 87811; 93005; 93350; 94640; 99285; G0378; Q9957

== ENCOUNTER → 2025-02-17 15:00 | Outpatient (REF) | payer OTHER, SELFPAY | LOC: DHVS 15:00 | PROVIDERS: ATTENDING PHYSICIAN Physician Assistant; FAMILY PHYSICIAN Family Medicine | DX: I72.1 Aneurysm of artery of upper extremity (principal) | CPT/HCPCS: 93931 ==

== ENCOUNTER 2025-02-21 15:26 | Outpatient (RCR) | payer OTHER, SELFPAY | END 2025-02-21 23:59 | disposition home or self-care (01) | LOC: CRHB 15:26 | PROVIDERS: ATTENDING PHYSICIAN Student in an Organized Health Care Education/Training Program; FAMILY PHYSICIAN Family Medicine | DX: I25.10 Atherosclerotic heart disease of native coronary artery without angina pectoris (principal); Z95.5 Presence of coronary angioplasty implant and graft | CPT/HCPCS: G0422; G0423 ==

== ENCOUNTER 2025-04-15 09:48 | Outpatient (RCR) | payer OTHER, SELFPAY | END 2025-04-15 23:59 | disposition home or self-care (01) | LOC: CRHB 09:48 | PROVIDERS: ATTENDING PHYSICIAN Student in an Organized Health Care Education/Training Program; FAMILY PHYSICIAN Family Medicine | DX: I25.10 Atherosclerotic heart disease of native coronary artery without angina pectoris (principal); Z95.5 Presence of coronary angioplasty implant and graft | CPT/HCPCS: G0422; G0423 ==